=== PATIENT | male | born 1990 | race Caucasian/White ===

== ENCOUNTER 2021-01-31 20:49 | Observation (INO) | payer MEDICAID ==
[2021-01-31] MEDS ORDERED: Iopamidol 612 MG/ML 100 ML Bottle IVPUSH ONE (21:39)
[2021-01-31] MEDS ORDERED: Ondansetron 4 MG/2 ML SDV IV ONE (21:48)
[2021-01-31 22:12] LABS: CHLORIDE,CL 95 mmol/L (98-107); SODIUM,NA 131 mmol/L (136-145)
[2021-01-31] MEDS ORDERED: Sodium Chloride 0.9% 1,000 ML IV ONE (22:31)
[2021-01-31] MEDS ORDERED: Ciprofloxacin in D5W 400 MG in Premix Bag 1 BAG IV ONE ×2 (23:00)
[2021-01-31] MEDS ORDERED: metroNIDAZOLE/Normal Saline 500 MG in Premix Bag 1 BAG IV ONE (23:01)
--- NOTE | 2021-02-01 00:06 | EDM.PDOC ---
ED HPI GENERAL MEDICAL PROBLEM - General Chief Complaint: Abdominal Pain Stated Complaint: ABDOMINAL PAIN Time Seen by Provider: 01/31/21 21:15 Source of Information: Reports: Patient, RN, RN Notes Reviewed, Other (staff from senior living) History Limitations: Reports: Other - History of Present Illness INITIAL COMMENTS - FREE TEXT/NARRATIVE: Patient is a 30-year-old male who presents to ER from the senior living where he resides with complaint of recent history of constipation, abdominal pain, and vomiting today. Patient has been seeing his primary care provider, was recently given a bowel cleanse to assist with stubborn and chronic constipation. After drinking the entire bowel prep, patient has been vomiting x5 today. Staff states he did have a medium sized bowel movement this morning and since then has been watery stools. Denies any fever chills, chest pains or shortness of breath. Onset: Gradual - Related Data Allergies Allergy/AdvReac Type Severity Reaction Status Date / Time cefaclor [Cefaclor] Allergy Cannot Verified 09/19/13 19:38 Remember Home Meds: Home Meds LORazepam [Ativan] 0.5 mg PO ASDIRECTED PRN 09/20/13 [History] polyethylene glycoL 3350 [MiraLAX] 17 gm PO DAILY #1 box 09/23/13 [Rx] Amitriptyline [Elavil] 25 mg PO BEDTIME 02/01/21 [History] Amoxicillin 2,000 mg PO ASDIRECTED 02/01/21 [History] Calcium Carbonate [Tums] 1,000 mg PO DAILY 02/01/21 [History] Clindamycin Phosphate 1 applic TOP DAILY 02/01/21 [History] Multivit-Minerals/Folic Acid [One-A-Day Vitacraves Gummie] 400 mcg PO DAILY 02/01/21 [History] Non-Formulary Medication [NF Drug] 1 cap PO BID 02/01/21 [History] Non-Formulary Medication [NF Drug] 10 ml PO DAILY 02/01/21 [History] Sertraline [Zoloft] 25 mg PO DAILY 02/01/21 [History] lamoTRIgine 300 mg PO BID 02/01/21 [History] levETIRAcetam [Keppra] 1,500 mg PO BID 02/01/21 [History] Social & Family History - Tobacco Use Tobacco Use Status *Q: Never Tobacco User - Recreational Drug Use Recreational Drug Use: No ED ROS GENERAL - Review of Systems Review Of Systems: Comprehensive ROS is negative, except as noted in HPI. ED EXAM, GI/ABD - Physical Exam Exam: See Below Exam Limited By: Other (developmental disability) General Appearance: Alert, WD/WN, No Apparent Distress Eyes: Bilateral: Normal Appearance, EOMI Ears: Normal External Exam, Hearing Grossly Normal Nose: Normal Inspection Throat/Mouth: Normal Inspection, Normal Voice, No Airway Compromise Head: Atraumatic, Normocephalic Neck: Normal Inspection, Supple, Non-Tender, Full Range of Motion Respiratory/Chest: No Respiratory Distress, Lungs Clear, Normal Breath Sounds, No Accessory Muscle Use, Chest Non-Tender Cardiovascular: Normal Peripheral Pulses, Regular Rate, Rhythm, No Edema, No Gallop, No JVD, No Murmur, No Rub GI/Abdominal Exam: Distended, Rigid, Tender, Abnormal Bowel Sounds (hypoactive) (Male) Exam: Deferred Rectal (Males) Exam: Deferred Back Exam: Normal Inspection, Full Range of Motion, NT Extremities: Normal Inspection, Other (wheelchair bound) Neurological: Alert Psychiatric: Normal Mood, Flat Affect Skin Exam: Warm, Dry, Intact, Normal Color, No Rash Lymphatic: No Adenopathy Course - Vital Signs Last Recorded V/S: Last Vital Signs Temp 98.7 F 02/01/21 14:00 Pulse 92 02/01/21 14:00 Resp 18 02/01/21 14:00 BP 124/80 02/01/21 14:00 Pulse Ox 94 L 02/01/21 14:00 - Orders/Labs/Meds Labs: Laboratory Tests 01/31/21 01/31/21 01/31/21 Range/Units 21:38 21:38 21:38 WBC 17.6 H (4.0-10.0) x10^3/uL RBC 5.33 (4.5-6.0) x10^6/uL Hgb 16.4 (14.0-18.0) g/dL Hct 45.2 (40.0-52.0) % MCV 84.8 (78.0-93.0) fL MCH 30.8 (26.0-32.0) pg MCHC 36.3 H (32.0-36.0) g/dL RDW Coeff of Emilia 12.5 (10.0-15.0) % Plt Count 272 (130-400) x10^3/uL Immature Gran % (Auto) 0.50 H (0.00-0.43) % Neut % (Auto) 85.4 H (50.0-80.0) % Lymph % (Auto) 8.1 L (25.0-50.0) % [place] % (Auto) 5.6 (2.0-11.0) % Eos % (Auto) 0.1 (0.0-4.0) % Baso % (Auto) 0.3 (0.2-1.2) % Neut # (Auto) 15.0 H (1.8-7.7) x10^3/uL Lymph # (Auto) 1.4 (1.0-4.8) x10^3/uL [place] # (Auto) 1.0 H (0.0-0.8) x10^3/uL Eos # (Auto) 0.0 (0.0-0.5) x10^3/uL Baso # (Auto) 0.1 (0.0-0.2) x10^3/uL Immature Gran # (Auto) 0.09 H (0.00-0.07) x10^3/uL Sodium 131 L (136-145) mmol/L Potassium 4.0 (3.5-5.1) mmol/L Chloride 95 L (98-107) mmol/L Carbon Dioxide 24 (21-32) mmol/L Anion Gap 16.0 H (5-15) mmol/L BUN 6 L (7-18) mg/dL Creatinine 0.7 (0.70-1.30) mg/dL Est Cr Clr Drug Dosing 124.19 mL/min Estimated GFR (MDRD) > 60 Glucose 125 H (70-99) mg/dL Lactic Acid 3.0 H* (0.4-2.0) mmol/L Calcium 8.3 L (8.5-10.1) mg/dL Corrected Calcium 8.2 L (8.5-10.1) mg/dL Total Bilirubin 0.3 (0.2-1.0) mg/dL AST 20 (15-37) U/L ALT 42 (16-63) U/L Alkaline Phosphatase 117 H (46-116) U/L C-Reactive Protein 0.6 (<=0.9) mg/dL Total Protein 7.5 (6.4-8.2) g/dL Albumin 4.1 (3.4-5.0) g/dL Globulin 3.4 Albumin/Globulin Ratio 1.21 Urine Color (YELLOW) Urine Appearance (CLEAR) Urine pH (5.0-8.0) Ur Specific [place] Urine Protein (NEGATIVE) mg/dL Urine Glucose (UA) (NEGATIVE) mg/dL Urine Ketones (NEGATIVE) mg/dL Urine Occult Blood (NEGATIVE) Urine Nitrite (NEGATIVE) Urine Bilirubin (NEGATIVE) Urine Urobilinogen (0.2) EU/dL Ur Leukocyte Esterase (NEGATIVE) SARS CoV-2 RNA Rapid JOSÉ MIGUEL (NEGATIVE) 01/31/21 01/31/21 Range/Units 22:28 22:55 WBC (4.0-10.0) x10^3/uL RBC (4.5-6.0) x10^6/uL Hgb (14.0-18.0) g/dL Hct (40.0-52.0) % MCV (78.0-93.0) fL MCH (26.0-32.0) pg MCHC (32.0-36.0) g/dL RDW Coeff of Emilia (10.0-15.0) % Plt Count (130-400) x10^3/uL Immature Gran % (Auto) (0.00-0.43) % Neut % (Auto) (50.0-80.0) % Lymph % (Auto) (25.0-50.0) % [place] % (Auto) (2.0-11.0) % Eos % (Auto) (0.0-4.0) % Baso % (Auto) (0.2-1.2) % Neut # (Auto) (1.8-7.7) x10^3/uL Lymph # (Auto) (1.0-4.8) x10^3/uL [place] # (Auto) (0.0-0.8) x10^3/uL Eos # (Auto) (0.0-0.5) x10^3/uL Baso # (Auto) (0.0-0.2) x10^3/uL Immature Gran # (Auto) (0.00-0.07) x10^3/uL Sodium (136-145) mmol/L Potassium (3.5-5.1) mmol/L Chloride (98-107) mmol/L Carbon Dioxide (21-32) mmol/L Anion Gap (5-15) mmol/L BUN (7-18) mg/dL Creatinine (0.70-1.30) mg/dL Est Cr Clr Drug Dosing mL/min Estimated GFR (MDRD) Glucose (70-99) mg/dL Lactic Acid (0.4-2.0) mmol/L Calcium (8.5-10.1) mg/dL Corrected Calcium (8.5-10.1) mg/dL Total Bilirubin (0.2-1.0) mg/dL AST (15-37) U/L ALT (16-63) U/L Alkaline Phosphatase (46-116) U/L C-Reactive Protein (<=0.9) mg/dL Total Protein (6.4-8.2) g/dL Albumin (3.4-5.0) g/dL Globulin Albumin/Globulin Ratio Urine Color Yellow (YELLOW) Urine Appearance Clear (CLEAR) Urine pH 7.0 (5.0-8.0) Ur Specific [place] 1.020 Urine Protein Negative (NEGATIVE) mg/dL Urine Glucose (UA) Negative (NEGATIVE) mg/dL Urine Ketones Negative (NEGATIVE) mg/dL Urine Occult Blood Negative (NEGATIVE) Urine Nitrite Negative (NEGATIVE) Urine Bilirubin Negative (NEGATIVE) Urine Urobilinogen 0.2 (0.2) EU/dL Ur Leukocyte Esterase Negative (NEGATIVE) SARS CoV-2 RNA Rapid JOSÉ MIGUEL Negative (NEGATIVE) Meds: Medications Discontinued Medications Generic Name Dose Route Start Last Admin Trade Name Freq PRN Reason Stop Dose Admin Amitriptyline HCl 25 mg 02/01/21 20:00 Amitriptyline 25 Mg Tab PO BEDTIME ARABELLA Calcium Carbonate/Glycine 750 mg 02/02/21 08:00 Calcium Carbonate 750 Mg Tab.Chew PO DAILY ARABELLA Docusate Sodium 100 mg 02/01/21 20:00 Docusate Sodium 100 Mg Cap PO BID ARABELLA Sodium Chloride 1,000 mls @ 999 mls/hr 01/31/21 22:31 01/31/21 22:30 Normal Saline IV 01/31/21 23:31 999 mls/hr ONETIME ONE Administration Ciprofloxacin/Dextrose 400 mg/ 200 mls @ 200 mls/hr 01/31/21 23:00 02/01/21 02:56 Premix IV 01/31/21 23:59 Not Given STAT ONE Metronidazole 500 mg/ Premix 100 mls @ 100 mls/hr 01/31/21 23:01 01/31/21 23:01 IV 02/01/21 00:00 100 mls/hr ONETIME ONE Administration Ciprofloxacin/Dextrose Confirm 02/01/21 02:41 02/01/21 02:56 Cipro In D5w 400 Mg/200 Ml Administered 02/01/21 02:42 200 mls/hr Dose Administration 200 mls @ as directed .ROUTE .STK-MED ONE Iopamidol 100 ml 01/31/21 21:39 01/31/21 22:13 Iopamidol 612 Mg/Ml 100 Ml Bottle IVPUSH 01/31/21 21:40 75 ml ONETIME ONE Administration Lamotrigine 300 mg 02/01/21 08:00 Lamotrigine 100 Mg Tab PO BID ARABELLA Lamotrigine 300 mg 02/01/21 08:00 02/01/21 09:04 Lamotrigine 100 Mg Tab PO 300 mg BID ARABELLA Administration Levetiracetam 1,500 mg 02/01/21 08:00 02/01/21 09:04 Levetiracetam 500 Mg Tab PO 1,500 mg BID ARABELLA Administration Lorazepam packet 02/01/21 00:16 Take Home: Lorazepam 0.5 Mg Tab, 2 Tab Pack PO ASDIRECTED PRN Agitation Multivitamins/Minerals 1 tab 02/02/21 08:00 Multivitamins With Iron/Calcium/Folic Acid/Minerals Tab PO DAILY ARABELLA Non-Formulary Medication 20 ml 02/01/21 08:00 Levetiracetam [Levetiracetam] PO BID ARABELLA Non-Formulary Medication 300 mg 02/01/21 08:00 Lamotrigine [Lamotrigine] PO BID ARABELLA Non-Formulary Medication 1,500 mg 02/01/21 08:00 Levetiracetam [Keppra] PO BID ARABELLA Non-Formulary Medication 1 applic 02/02/21 08:00 Clindamycin Phosphate [Clindamycin Phosphate] TOP DAILY ARABELLA Non-Formulary Medication each 02/02/21 08:00 Non-Formulary Medication 1 Each PO DAILY ARABELLA Ondansetron HCl 4 mg 01/31/21 21:48 01/31/21 22:10 Ondansetron 4 Mg/2 Ml Sdv IV 01/31/21 21:49 4 mg ONETIME ONE Administration Polyethylene Glycol 17 gm 02/02/21 08:00 Polyethylene Glycol 3350 Powder 17 Gm Packet PO DAILY ARABELLA Sertraline HCl 25 mg 02/01/21 08:00 02/01/21 09:04 Sertraline 25 Mg Tab PO 25 mg DAILY ARABELLA Administration - Radiology Interpretation Free Text/Narrative:: CT Abdomen/Pelvis: Colitis noted Please see rad report - Re-Assessments/Exams Free Text/Narrative Re-Assessment/Exam: 02/01/21 20:34 Care turned over to Maile Brand NP at 0700 shift change. Departure - Departure Time of Disposition: 18:45 Disposition: Home, Self-Care 01 Condition: Fair Clinical Impression: Colitis - Discharge Information *PRESCRIPTION DRUG MONITORING PROGRAM REVIEWED*: No *COPY OF PRESCRIPTION DRUG MONITORING REPORT IN PATIENT JANE: No Sepsis Event Note (ED) - Evaluation Sepsis Screening Result: No Definite Risk
[2021-02-01] MEDS ORDERED: Take Home: LORazepam 0.5 MG Tab, 2 Tab Pack PO PRN (00:16)
[2021-02-01] MEDS ORDERED: Ciprofloxacin in D5W 200 ML ONE (02:41)
[2021-02-01] MEDS ORDERED: Non-Formulary Medication 1 Each (Levetiracetam [Keppra] 1,000 MG Tablet) PO SCH (08:00)
[2021-02-01] MEDS ORDERED: levETIRAcetam 500 MG Tab PO SCH (08:00)
[2021-02-01] MEDS ORDERED: Sertraline 25 MG Tab PO SCH (08:00)
[2021-02-01] MEDS ORDERED: LAMOTRIGINE 200 MG PO SCH (08:00)
[2021-02-01] MEDS ORDERED: LEVETIRACETAM 100 MG/ML PO SCH (08:00)
[2021-02-01] MEDS ORDERED: lamoTRIgine 100 MG Tab PO SCH ×2 (08:00)
--- NOTE | 2021-02-01 10:58 | CT ---
[id number] CT/CT Abdomen Pelvis W IV EXAM: CT Abdomen Pelvis W IV CLINICAL DATA: DISTENDED ABDOMEN, VOMITING, LOOSE STOOLS COMPARISON STUDY: None. FINDINGS: Ventriculostomy shunt tubing coursing through the subcutaneous fat of the right abdominal wall and entering the right mid abdomen. The catheter tip is positioned just deep to the left mid abdominal rectus musculature. Small volume free fluid adjacent to the dome of the urinary bladder. Elevation of the right hemidiaphragm. Liver, spleen, gallbladder, pancreas, adrenal glands, and kidneys are unremarkable. There is fluid seen throughout the colon most pronounced within the sigmoid colon. No significant inflammatory change. No lymphadenopathy, free fluid, or pneumoperitoneum. Scattered changes of spondylosis the spine. Advanced scoliotic curvature of the thoracolumbar spine with S shaped scoliosis. No fracture or osseous lesion. IMPRESSION: 1. Fluid seen throughout the colon most pronounced within the sigmoid colon and rectum. No significant surrounding inflammatory change. Findings could be seen with colitis. 2. Ventriculostomy shunt tubing coursing through the subcutaneous fat of the right abdominal wall and entering the right mid abdomen. Catheter tip is just deep to the left mid abdominal rectus musculature. Anand Medina DO 02/01/21 1057 Thank you for allowing us to participate in the care of your patient.
--- NOTE | 2021-02-01 17:24 | PCM.PN ---
- General Info Date of Service: 02/01/21 Admission Dx/Problem (Free Text): 1)Constipation 2)Possible Colitis Subjective Update: Fabricio is seen on rounds this AM. His mother is at bedside and is concerned about his shunt being plugged because he is having some of the neuro sx that he has when the shunt has been plugged in the past. Mother reports that his right eye is gazing inward and his eyes are more "bulged out" than normal. He has had his shunt block several times and had to have revisions done. He then had 5-6 stools today and then his mom reported that his subtle neuro changes have improved. [facility] noted that shunt tip was pushed up against the abdominal wall on CT. Patient then has had a fairly uneventful day and several more bowel movements. - Review of Systems General: Reports: No Symptoms HEENT: Reports: No Symptoms Pulmonary: Reports: No Symptoms Cardiovascular: Reports: No Symptoms Gastrointestinal: Reports: Other (Multiple bowel movements) Genitourinary: Reports: No Symptoms Musculoskeletal: Reports: No Symptoms Neurological: Reports: Other (See Subjective for further description) - Patient Data Vitals - Most Recent: Last Vital Signs Temp 37.1 C 02/01/21 14:00 Pulse 92 02/01/21 14:00 Resp 18 02/01/21 14:00 BP 124/80 02/01/21 14:00 Pulse Ox 94 L 02/01/21 14:00 Weight - Most Recent: 74.843 kg I&O - Last 24 Hours: Intake & Output 02/01/21 02/01/21 02/01/21 06:59 14:59 22:59 Intake Total 10 Balance 10 Lab Results Last 24 Hours: Laboratory Results - last 24 hr 01/31/21 01/31/21 01/31/21 Range/Units 21:38 21:38 21:38 WBC 17.6 H (4.0-10.0) x10^3/uL RBC 5.33 (4.5-6.0) x10^6/uL Hgb 16.4 (14.0-18.0) g/dL Hct 45.2 (40.0-52.0) % MCV 84.8 (78.0-93.0) fL MCH 30.8 (26.0-32.0) pg MCHC 36.3 H (32.0-36.0) g/dL RDW Coeff of Emilia 12.5 (10.0-15.0) % Plt Count 272 (130-400) x10^3/uL Immature Gran % (Auto) 0.50 H (0.00-0.43) % Neut % (Auto) 85.4 H (50.0-80.0) % Lymph % (Auto) 8.1 L (25.0-50.0) % [place] % (Auto) 5.6 (2.0-11.0) % Eos % (Auto) 0.1 (0.0-4.0) % Baso % (Auto) 0.3 (0.2-1.2) % Neut # (Auto) 15.0 H (1.8-7.7) x10^3/uL Lymph # (Auto) 1.4 (1.0-4.8) x10^3/uL [place] # (Auto) 1.0 H (0.0-0.8) x10^3/uL Eos # (Auto) 0.0 (0.0-0.5) x10^3/uL Baso # (Auto) 0.1 (0.0-0.2) x10^3/uL Immature Gran # (Auto) 0.09 H (0.00-0.07) x10^3/uL Sodium 131 L (136-145) mmol/L Potassium 4.0 (3.5-5.1) mmol/L Chloride 95 L (98-107) mmol/L Carbon Dioxide 24 (21-32) mmol/L Anion Gap 16.0 H (5-15) mmol/L BUN 6 L (7-18) mg/dL Creatinine 0.7 (0.70-1.30) mg/dL Est Cr Clr Drug Dosing 124.19 mL/min Estimated GFR (MDRD) > 60 Glucose 125 H (70-99) mg/dL Lactic Acid 3.0 H* (0.4-2.0) mmol/L Calcium 8.3 L (8.5-10.1) mg/dL Corrected Calcium 8.2 L (8.5-10.1) mg/dL Total Bilirubin 0.3 (0.2-1.0) mg/dL AST 20 (15-37) U/L ALT 42 (16-63) U/L Alkaline Phosphatase 117 H (46-116) U/L C-Reactive Protein 0.6 (<=0.9) mg/dL Total Protein 7.5 (6.4-8.2) g/dL Albumin 4.1 (3.4-5.0) g/dL Globulin 3.4 Albumin/Globulin Ratio 1.21 Urine Color (YELLOW) Urine Appearance (CLEAR) Urine pH (5.0-8.0) Ur Specific [place] Urine Protein (NEGATIVE) mg/dL Urine Glucose (UA) (NEGATIVE) mg/dL Urine Ketones (NEGATIVE) mg/dL Urine Occult Blood (NEGATIVE) Urine Nitrite (NEGATIVE) Urine Bilirubin (NEGATIVE) Urine Urobilinogen (0.2) EU/dL Ur Leukocyte Esterase (NEGATIVE) SARS CoV-2 RNA Rapid JOSÉ MIGUEL (NEGATIVE) 01/31/21 01/31/21 02/01/21 Range/Units 22:28 22:55 01:58 WBC (4.0-10.0) x10^3/uL RBC (4.5-6.0) x10^6/uL Hgb (14.0-18.0) g/dL Hct (40.0-52.0) % MCV (78.0-93.0) fL MCH (26.0-32.0) pg MCHC (32.0-36.0) g/dL RDW Coeff of Emilia (10.0-15.0) % Plt Count (130-400) x10^3/uL Immature Gran % (Auto) (0.00-0.43) % Neut % (Auto) (50.0-80.0) % Lymph % (Auto) (25.0-50.0) % [place] % (Auto) (2.0-11.0) % Eos % (Auto) (0.0-4.0) % Baso % (Auto) (0.2-1.2) % Neut # (Auto) (1.8-7.7) x10^3/uL Lymph # (Auto) (1.0-4.8) x10^3/uL [place] # (Auto) (0.0-0.8) x10^3/uL Eos # (Auto) (0.0-0.5) x10^3/uL Baso # (Auto) (0.0-0.2) x10^3/uL Immature Gran # (Auto) (0.00-0.07) x10^3/uL Sodium (136-145) mmol/L Potassium (3.5-5.1) mmol/L Chloride (98-107) mmol/L Carbon Dioxide (21-32) mmol/L Anion Gap (5-15) mmol/L BUN (7-18) mg/dL Creatinine (0.70-1.30) mg/dL Est Cr Clr Drug Dosing mL/min Estimated GFR (MDRD) Glucose (70-99) mg/dL Lactic Acid 2.0 (0.4-2.0) mmol/L Calcium (8.5-10.1) mg/dL Corrected Calcium (8.5-10.1) mg/dL Total Bilirubin (0.2-1.0) mg/dL AST (15-37) U/L ALT (16-63) U/L Alkaline Phosphatase (46-116) U/L C-Reactive Protein (<=0.9) mg/dL Total Protein (6.4-8.2) g/dL Albumin (3.4-5.0) g/dL Globulin Albumin/Globulin Ratio Urine Color Yellow (YELLOW) Urine Appearance Clear (CLEAR) Urine pH 7.0 (5.0-8.0) Ur Specific [place] 1.020 Urine Protein Negative (NEGATIVE) mg/dL Urine Glucose (UA) Negative (NEGATIVE) mg/dL Urine Ketones Negative (NEGATIVE) mg/dL Urine Occult Blood Negative (NEGATIVE) Urine Nitrite Negative (NEGATIVE) Urine Bilirubin Negative (NEGATIVE) Urine Urobilinogen 0.2 (0.2) EU/dL Ur Leukocyte Esterase Negative (NEGATIVE) SARS CoV-2 RNA Rapid JOSÉ MIGUEL Negative (NEGATIVE) Bradford Results Last 24 Hours: Microbiology 01/31/21 22:23 Anaerobic Blood Culture - Final Blood - Venous 01/31/21 22:28 Anaerobic Blood Culture - Final Blood - Venous - Lab Draw Med Orders - Current: Current Medications Lamotrigine (Lamotrigine 100 Mg Tab) 300 mg PO BID [facility] Last Admin: 02/01/21 09:04 Dose: 300 mg Documented by: Levetiracetam (Levetiracetam 500 Mg Tab) 1,500 mg PO BID [facility] Last Admin: 02/01/21 09:04 Dose: 1,500 mg Documented by: Sertraline HCl (Sertraline 25 Mg Tab) 25 mg PO DAILY ARABELLA Last Admin: 02/01/21 09:04 Dose: 25 mg Documented by: Discontinued Medications Sodium Chloride (Normal Saline) 1,000 mls @ 999 mls/hr IV ONETIME ONE Stop: 01/31/21 23:31 Last Admin: 01/31/21 22:30 Dose: 999 mls/hr Documented by: Ciprofloxacin/Dextrose 400 mg/ (Premix) 200 mls @ 200 mls/hr IV STAT ONE Stop: 01/31/21 23:59 Last Admin: 02/01/21 02:56 Dose: Not Given Documented by: Metronidazole 500 mg/ Premix 100 mls @ 100 mls/hr IV ONETIME ONE Stop: 02/01/21 00:00 Last Admin: 01/31/21 23:01 Dose: 100 mls/hr Documented by: Ciprofloxacin/Dextrose (Cipro In D5w 400 Mg/200 Ml) Confirm Administered Dose 200 mls @ as directed .ROUTE .STK-MED ONE Stop: 02/01/21 02:42 Last Admin: 02/01/21 02:56 Dose: 200 mls/hr Documented by: Iopamidol (Iopamidol 612 Mg/Ml 100 Ml Bottle) 100 ml IVPUSH ONETIME ONE Stop: 01/31/21 21:40 Last Admin: 01/31/21 22:13 Dose: 75 ml Documented by: Lamotrigine (Lamotrigine 100 Mg Tab) 300 mg PO BID ARABELLA Lorazepam (Take Home: Lorazepam 0.5 Mg Tab, 2 Tab Pack) packet PO ASDIRECTED PRN PRN Reason: Agitation Non-Formulary Medication (Levetiracetam [Levetiracetam]) 20 ml PO BID ARABELLA Non-Formulary Medication (Lamotrigine [Lamotrigine]) 300 mg PO BID ARABELLA Non-Formulary Medication (Levetiracetam [Keppra]) 1,500 mg PO BID ARABELLA Ondansetron HCl (Ondansetron 4 Mg/2 Ml Sdv) 4 mg IV ONETIME ONE Stop: 01/31/21 21:49 Last Admin: 01/31/21 22:10 Dose: 4 mg Documented by: - Exam General: Alert HEENT: Pupils Equal, Mucous Membr. Moist/[place], Other (Note right eye gazing inward this AM, but improved ove rthe course of the day.) Neck: Supple Lungs: Clear to Auscultation Cardiovascular: Regular Rate, Regular Rhythm GI/Abdominal Exam: Normal Bowel Sounds, Other (Right side of abdomen palpated more firm.) (Male) Exam: Normal Inspection Back Exam: Normal Inspection Extremities: Normal Inspection, Normal Range of Motion, Normal Capillary Refill Skin: Warm, Dry, Intact Neurological: No New Focal Deficit Psy/Mental Status: Alert - Patient Data Lab Results Last 24 hrs: Laboratory Results - last 24 hr 01/31/21 01/31/21 01/31/21 Range/Units 21:38 21:38 21:38 WBC 17.6 H (4.0-10.0) x10^3/uL RBC 5.33 (4.5-6.0) x10^6/uL Hgb 16.4 (14.0-18.0) g/dL Hct 45.2 (40.0-52.0) % MCV 84.8 (78.0-93.0) fL MCH 30.8 (26.0-32.0) pg MCHC 36.3 H (32.0-36.0) g/dL RDW Coeff of Emilia 12.5 (10.0-15.0) % Plt Count 272 (130-400) x10^3/uL Immature Gran % (Auto) 0.50 H (0.00-0.43) % Neut % (Auto) 85.4 H (50.0-80.0) % Lymph % (Auto) 8.1 L (25.0-50.0) % [place] % (Auto) 5.6 (2.0-11.0) % Eos % (Auto) 0.1 (0.0-4.0) % Baso % (Auto) 0.3 (0.2-1.2) % Neut # (Auto) 15.0 H (1.8-7.7) x10^3/uL Lymph # (Auto) 1.4 (1.0-4.8) x10^3/uL [place] # (Auto) 1.0 H (0.0-0.8) x10^3/uL Eos # (Auto) 0.0 (0.0-0.5) x10^3/uL Baso # (Auto) 0.1 (0.0-0.2) x10^3/uL Immature Gran # (Auto) 0.09 H (0.00-0.07) x10^3/uL Sodium 131 L (136-145) mmol/L Potassium 4.0 (3.5-5.1) mmol/L Chloride 95 L (98-107) mmol/L Carbon Dioxide 24 (21-32) mmol/L Anion Gap 16.0 H (5-15) mmol/L BUN 6 L (7-18) mg/dL Creatinine 0.7 (0.70-1.30) mg/dL Est Cr Clr Drug Dosing 124.19 mL/min Estimated GFR (MDRD) > 60 Glucose 125 H (70-99) mg/dL Lactic Acid 3.0 H* (0.4-2.0) mmol/L Calcium 8.3 L (8.5-10.1) mg/dL Corrected Calcium 8.2 L (8.5-10.1) mg/dL Total Bilirubin 0.3 (0.2-1.0) mg/dL AST 20 (15-37) U/L ALT 42 (16-63) U/L Alkaline Phosphatase 117 H (46-116) U/L C-Reactive Protein 0.6 (<=0.9) mg/dL Total Protein 7.5 (6.4-8.2) g/dL Albumin 4.1 (3.4-5.0) g/dL Globulin 3.4 Albumin/Globulin Ratio 1.21 Urine Color (YELLOW) Urine Appearance (CLEAR) Urine pH (5.0-8.0) Ur Specific [place] Urine Protein (NEGATIVE) mg/dL Urine Glucose (UA) (NEGATIVE) mg/dL Urine Ketones (NEGATIVE) mg/dL Urine Occult Blood (NEGATIVE) Urine Nitrite (NEGATIVE) Urine Bilirubin (NEGATIVE) Urine Urobilinogen (0.2) EU/dL Ur Leukocyte Esterase (NEGATIVE) SARS CoV-2 RNA Rapid JOSÉ MIGUEL (NEGATIVE) 01/31/21 01/31/21 02/01/21 Range/Units 22:28 22:55 01:58 WBC (4.0-10.0) x10^3/uL RBC (4.5-6.0) x10^6/uL Hgb (14.0-18.0) g/dL Hct (40.0-52.0) % MCV (78.0-93.0) fL MCH (26.0-32.0) pg MCHC (32.0-36.0) g/dL RDW Coeff of Emilia (10.0-15.0) % Plt Count (130-400) x10^3/uL Immature Gran % (Auto) (0.00-0.43) % Neut % (Auto) (50.0-80.0) % Lymph % (Auto) (25.0-50.0) % [place] % (Auto) (2.0-11.0) % Eos % (Auto) (0.0-4.0) % Baso % (Auto) (0.2-1.2) % Neut # (Auto) (1.8-7.7) x10^3/uL Lymph # (Auto) (1.0-4.8) x10^3/uL [place] # (Auto) (0.0-0.8) x10^3/uL Eos # (Auto) (0.0-0.5) x10^3/uL Baso # (Auto) (0.0-0.2) x10^3/uL Immature Gran # (Auto) (0.00-0.07) x10^3/uL Sodium (136-145) mmol/L Potassium (3.5-5.1) mmol/L Chloride (98-107) mmol/L Carbon Dioxide (21-32) mmol/L Anion Gap (5-15) mmol/L BUN (7-18) mg/dL Creatinine (0.70-1.30) mg/dL Est Cr Clr Drug Dosing mL/min Estimated GFR (MDRD) Glucose (70-99) mg/dL Lactic Acid 2.0 (0.4-2.0) mmol/L Calcium (8.5-10.1) mg/dL Corrected Calcium (8.5-10.1) mg/dL Total Bilirubin (0.2-1.0) mg/dL AST (15-37) U/L ALT (16-63) U/L Alkaline Phosphatase (46-116) U/L C-Reactive Protein (<=0.9) mg/dL Total Protein (6.4-8.2) g/dL Albumin (3.4-5.0) g/dL Globulin Albumin/Globulin Ratio Urine Color Yellow (YELLOW) Urine Appearance Clear (CLEAR) Urine pH 7.0 (5.0-8.0) Ur Specific [place] 1.020 Urine Protein Negative (NEGATIVE) mg/dL Urine Glucose (UA) Negative (NEGATIVE) mg/dL Urine Ketones Negative (NEGATIVE) mg/dL Urine Occult Blood Negative (NEGATIVE) Urine Nitrite Negative (NEGATIVE) Urine Bilirubin Negative (NEGATIVE) Urine Urobilinogen 0.2 (0.2) EU/dL Ur Leukocyte Esterase Negative (NEGATIVE) SARS CoV-2 RNA Rapid JOSÉ MIGUEL Negative (NEGATIVE) Result Diagrams: 01/31/21 21:38 01/31/21 21:38 Bradofrd Results Last 24 hrs: Microbiology 01/31/21 22:23 Anaerobic Blood Culture - Final Blood - Venous 01/31/21 22:28 Anaerobic Blood Culture - Final Blood - Venous - Lab Draw Sepsis Event Note - Evaluation Sepsis Screening Result: Sepsis Risk - Focused Exam Vital Signs: Vital Signs Temp Pulse Resp BP Pulse Ox 02/01/21 14:00 37.1 C 92 18 124/80 94 L 02/01/21 13:33 36.7 C 54 L 18 134/82 94 L 02/01/21 05:30 37.2 C 20 L 18 128/74 92 L - Problem List & Annotations (1) Constipation - functional SNOMED Code(s): 271519106 Code(s): K59.09 - OTHER CONSTIPATION Status: Acute Current Visit: No Annotation/Comment:: Has had multiple bowel movements over the course of the day. [facility] and advised high fiber and increased oral fluids. (2) 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 SNOMED Code(s): 675605403 Code(s): Z98.2 - PRESENCE OF CEREBROSPINAL FLUID DRAINAGE DEVICE Status: Acute Current Visit: Yes Annotation/Comment:: Sx were concerning for a blocked shunt, but has he had more BMs today, the neuro sx resolved. Most likely the shun tip was blocked due to the severe constipation. - Problem List Review Problem List Initiated/Reviewed/Updated: Yes - Plan Plan:: -Discharge back to [facility] -High Fiber Diet -Push fluids. -Follow up with PCP in 1 week.
[2021-02-01] MEDS ORDERED: Docusate Sodium 100 MG Cap PO SCH (20:00)
[2021-02-01] MEDS ORDERED: Amitriptyline 25 MG Tab PO SCH (20:00)
[2021-02-02] MEDS ORDERED: Multivitamins with Iron/Calcium/Folic Acid/Minerals Tab PO SCH (08:00)
[2021-02-02] MEDS ORDERED: Polyethylene Glycol 3350 Powder 17 GM Packet PO SCH (08:00)
[2021-02-02] MEDS ORDERED: Non-Formulary Medication 1 Each PO SCH (08:00)
[2021-02-02] MEDS ORDERED: CLINDAMYCIN PHOSPHATE TOP SCH (08:00)
[2021-02-02] MEDS ORDERED: Calcium Carbonate 750 MG Tab.Chew PO SCH (08:00)
== END 2021-02-01 18:45 ==
LOC: VM.ED 20:49 → VM.MS 02-01 00:12
PROVIDERS: ADMIT Nurse Practitioner Family; ATTEND Nurse Practitioner Family
DX: K59.04 Chronic idiopathic constipation (principal); R11.0 Nausea; Z88.8 Allergy status to other drugs, medicaments and biological substances; Z79.899 Other long term (current) drug therapy; Z98.2 Presence of cerebrospinal fluid drainage device; Z20.822 Contact with and (suspected) exposure to COVID-19
CPT/HCPCS: 36415; 74177; 80053; 81003; 83605; 85025; 86140; 87040; 96365; 96375; 99217; 99220; 99285-25; A9270-GY; G0378; J0744; J2405; J3490; J7030; Q9967; U0002

== ENCOUNTER 2021-04-14 05:30 | Inpatient (IN) | payer MEDICAID ==
--- NOTE | 2021-04-14 06:30 | EDM.PDOC ---
ED HPI GENERAL MEDICAL PROBLEM - General Chief Complaint: General Stated Complaint: Seizure Time Seen by Provider: 04/14/21 05:33 Source of Information: Reports: EMS - History of Present Illness INITIAL COMMENTS - FREE TEXT/NARRATIVE: Came in via EMS from custodial where he had a seizure that lasted 4 minutes. Arrived to ER in no distress. Has intellectual disability, cerebral palsy, senior svp shunt, hx seizures. Care worker reports pat concerns about constipation, but reports adequate BMs recently. Reports vomited yesterday. Onset: Sudden Onset Date: 04/13/21 Onset Time: 05:00 Duration: Resolved Prior to Arrival - Related Data Allergies Allergy/AdvReac Type Severity Reaction Status Date / Time cefaclor [Cefaclor] Allergy Cannot Verified 04/14/21 08:18 Remember Home Meds: Home Meds LORazepam [Ativan] 0.5 mg PO ASDIRECTED PRN 09/20/13 [History] Amoxicillin 2,000 mg PO ASDIRECTED 02/01/21 [History] Calcium Carbonate [Tums] 1,000 mg PO DAILY 02/01/21 [History] Clindamycin Phosphate 1 applic TOP DAILY 02/01/21 [History] Multivit-Minerals/Folic Acid [One-A-Day Vitacraves Gummie] 400 mcg PO DAILY 02/01/21 [History] Non-Formulary Medication [NF Drug] 1 cap PO BID 02/01/21 [History] Non-Formulary Medication [NF Drug] 10 ml PO DAILY 02/01/21 [History] Sertraline [Zoloft] 25 mg PO DAILY 02/01/21 [History] lamoTRIgine 300 mg PO BID 02/01/21 [History] levETIRAcetam [Keppra] 1,500 mg PO BID 02/01/21 [History] polyethylene glycoL 3350 [MiraLAX] 17 gm PO BID 04/14/21 [History] Past Medical History HEENT History: Reports: Other (See Below) (legally blind) Neurological History: Reports: Cerebral Palsy, Seizure Social & Family History - Family History Family Medical History: Unobtainable - Caffeine Use Caffeine Use: Reports: None ED ROS GENERAL - Review of Systems Review Of Systems: Comprehensive ROS is negative, except as noted in HPI. ED EXAM, GENERAL - Physical Exam Exam: See Below Exam Limited By: Other (intellectual disability) General Appearance: No Apparent Distress, Other (awake) Eye Exam: Bilateral Eye: Other (legally blind) Ears: Normal External Exam Nose: Normal Inspection, Normal Mucosa, No Blood Throat/Mouth: Normal Lips, No Airway Compromise Head: Atraumatic, Normocephalic Neck: Non-Tender Respiratory/Chest: No Respiratory Distress, Lungs Clear, No Accessory Muscle Use, Chest Non-Tender, Decreased Breath Sounds Cardiovascular: Regular Rate, Rhythm GI/Abdominal: Normal Bowel Sounds, Soft, Non-Tender Extremities: No Pedal Edema, Normal Capillary Refill Neurological: Sensory/Motor Deficit, Other (at baseline) Skin Exam: Warm, Dry, Intact, Normal Color, No Rash Lymphatic: No Adenopathy Course - Vital Signs Last Recorded V/S: Last Vital Signs Temp 101.7 F H 04/14/21 09:28 Pulse 75 04/14/21 09:52 Resp 18 04/14/21 09:52 BP 116/71 04/14/21 09:52 Pulse Ox 92 L 04/14/21 09:52 - Orders/Labs/Meds Orders: Active Orders 24 hr Category Date Time Status CULTURE BLOOD [BC] Stat Lab 04/14/21 08:18 Received CULTURE BLOOD [BC] Stat Lab 04/14/21 08:22 Received Sodium Chloride 0.9% [Normal Saline] 1,000 ml Med 04/14/21 08:00 Active IV ASDIRECTED Blood Culture x2 Reflex Set [OM.PC] Stat Oth 04/14/21 08:03 Ordered Medication Orders Enoxaparin Sodium (Enoxaparin 40 Mg/0.4 Ml Syringe) 40 mg SUBCUT DAILY ARABELLA Sodium Chloride (Normal Saline) 1,000 mls @ 999 mls/hr IV ASDIRECTED ARABELLA Last Admin: 04/14/21 07:55 Dose: 999 mls/hr Documented by: LAURA Piperacillin Sod/Tazobactam (Sod 4.5 gm/ Sodium Chloride) 100 mls @ 200 mls/hr IV Q6H ARABELLA Lamotrigine (Lamotrigine 100 Mg Tab) 300 mg PO BID ARABELLA Levetiracetam (Levetiracetam 500 Mg Tab) 1,500 mg PO BID ARABELLA Lorazepam (Lorazepam 0.5 Mg Tab) 0.5 mg PO ASDIRECTED PRN PRN Reason: Agitation Clindamycin Phosphate Gel (Own Supply) 1 applic TOP DAILY [facility] Ondansetron HCl (Ondansetron 4 Mg Tab.Dis) 4 mg PO Q4H PRN PRN Reason: nausea, able to take PO Ondansetron HCl (Ondansetron 4 Mg/2 Ml Sdv) 4 mg IV Q4H PRN PRN Reason: Nausea/Vomiting Polyethylene Glycol (Polyethylene Glycol 3350 Powder 17 Gm Packet) 17 gm PO BID [facility] Sertraline HCl (Sertraline 25 Mg Tab) 25 mg PO DAILY [facility] Labs: Laboratory Tests 04/14/21 04/14/21 04/14/21 Range/Units 07:02 07:02 07:02 WBC 18.9 H (4.0-10.0) x10^3/uL RBC 5.40 (4.5-6.0) x10^6/uL Hgb 16.8 (14.0-18.0) g/dL Hct 46.3 (40.0-52.0) % MCV 85.7 (78.0-93.0) fL MCH 31.1 (26.0-32.0) pg MCHC 36.3 H (32.0-36.0) g/dL RDW Coeff of Emilia 12.4 (10.0-15.0) % Plt Count 278 (130-400) x10^3/uL Immature Gran % (Auto) 0.20 (0.00-0.43) % Neut % (Auto) 84.0 H (50.0-80.0) % Lymph % (Auto) 7.5 L (25.0-50.0) % Henry % (Auto) 8.0 (2.0-11.0) % Eos % (Auto) 0.1 (0.0-4.0) % Baso % (Auto) 0.2 (0.2-1.2) % Neut # (Auto) 15.9 H (1.8-7.7) x10^3/uL Lymph # (Auto) 1.4 (1.0-4.8) x10^3/uL Henry # (Auto) 1.5 H (0.0-0.8) x10^3/uL Eos # (Auto) 0.0 (0.0-0.5) x10^3/uL Baso # (Auto) 0.0 (0.0-0.2) x10^3/uL Immature Gran # (Auto) 0.04 (0.00-0.07) x10^3/uL Sodium 134 L (136-145) mmol/L Potassium 3.6 (3.5-5.1) mmol/L Chloride 98 (98-107) mmol/L Carbon Dioxide 24 (21-32) mmol/L Anion Gap 15.6 H (5-15) mmol/L BUN 12 (7-18) mg/dL Creatinine 0.8 (0.70-1.30) mg/dL Est Cr Clr Drug Dosing TNP Estimated GFR (MDRD) > 60 Glucose 103 H (70-99) mg/dL Lactic Acid 1.2 (0.4-2.0) mmol/L Calcium 9.6 (8.5-10.1) mg/dL Corrected Calcium 9.6 (8.5-10.1) mg/dL Total Bilirubin 0.5 (0.2-1.0) mg/dL AST 16 (15-37) U/L ALT 35 (16-63) U/L Alkaline Phosphatase 123 H (46-116) U/L Total Protein 7.7 (6.4-8.2) g/dL Albumin 4.0 (3.4-5.0) g/dL Globulin 3.7 Albumin/Globulin Ratio 1.08 Influenza Type A RNA (NEGATIVE) RSV RNA (INAAT) (NEGATIVE) Influenza Type B RNA (NEGATIVE) SARS-CoV-2 RNA (JOSÉ MIGUEL) (NEGATIVE) 04/14/21 Range/Units 08:00 WBC (4.0-10.0) x10^3/uL RBC (4.5-6.0) x10^6/uL Hgb (14.0-18.0) g/dL Hct (40.0-52.0) % MCV (78.0-93.0) fL MCH (26.0-32.0) pg MCHC (32.0-36.0) g/dL RDW Coeff of Emilia (10.0-15.0) % Plt Count (130-400) x10^3/uL Immature Gran % (Auto) (0.00-0.43) % Neut % (Auto) (50.0-80.0) % Lymph % (Auto) (25.0-50.0) % Henry % (Auto) (2.0-11.0) % Eos % (Auto) (0.0-4.0) % Baso % (Auto) (0.2-1.2) % Neut # (Auto) (1.8-7.7) x10^3/uL Lymph # (Auto) (1.0-4.8) x10^3/uL Henry # (Auto) (0.0-0.8) x10^3/uL Eos # (Auto) (0.0-0.5) x10^3/uL Baso # (Auto) (0.0-0.2) x10^3/uL Immature Gran # (Auto) (0.00-0.07) x10^3/uL Sodium (136-145) mmol/L Potassium (3.5-5.1) mmol/L Chloride (98-107) mmol/L Carbon Dioxide (21-32) mmol/L Anion Gap (5-15) mmol/L BUN (7-18) mg/dL Creatinine (0.70-1.30) mg/dL Est Cr Clr Drug Dosing Estimated GFR (MDRD) Glucose (70-99) mg/dL Lactic Acid (0.4-2.0) mmol/L Calcium (8.5-10.1) mg/dL Corrected Calcium (8.5-10.1) mg/dL Total Bilirubin (0.2-1.0) mg/dL AST (15-37) U/L ALT (16-63) U/L Alkaline Phosphatase (46-116) U/L Total Protein (6.4-8.2) g/dL Albumin (3.4-5.0) g/dL Globulin Albumin/Globulin Ratio Influenza Type A RNA Negative (NEGATIVE) RSV RNA (INAAT) Negative (NEGATIVE) Influenza Type B RNA Negative (NEGATIVE) SARS-CoV-2 RNA (JOSÉ MIGUEL) Negative (NEGATIVE) Meds: Medications Generic Name Dose Route Start Last Admin Trade Name Freq PRN Reason Stop Dose Admin Enoxaparin Sodium 40 mg 04/15/21 08:00 Enoxaparin 40 Mg/0.4 Ml Syringe SUBCUT DAILY ARABELLA Sodium Chloride 1,000 mls @ 999 mls/hr 04/14/21 08:00 04/14/21 07:55 Normal Saline IV 999 mls/hr ASDIRECTED ARABELLA Administration Piperacillin Sod/Tazobactam 100 mls @ 200 mls/hr 04/14/21 11:30 Sod 4.5 gm/ Sodium Chloride IV Q6H ARABELLA Lamotrigine 300 mg 04/14/21 20:00 Lamotrigine 100 Mg Tab PO BID ARABELLA Levetiracetam 1,500 mg 04/14/21 20:00 Levetiracetam 500 Mg Tab PO BID ARABELLA Lorazepam 0.5 mg 04/14/21 10:54 Lorazepam 0.5 Mg Tab PO ASDIRECTED PRN Agitation Clindamycin 1 applic 04/15/21 08:00 Phosphate Gel (Own [employer] Supply) DAILY [facility] Ondansetron HCl 4 mg 04/14/21 10:18 Ondansetron 4 Mg Tab.Dis PO Q4H PRN nausea, able to take PO Ondansetron HCl 4 mg 04/14/21 10:18 Ondansetron 4 Mg/2 Ml Sdv IV Q4H PRN Nausea/Vomiting Polyethylene Glycol 17 gm 04/14/21 11:00 Polyethylene Glycol 3350 Powder 17 Gm Packet PO BID [facility] Sertraline HCl 25 mg 04/15/21 08:00 Sertraline 25 Mg Tab PO DAILY ARABELLA Discontinued Medications Generic Name Dose Route Start Last Admin Trade Name Freq PRN Reason Stop Dose Admin Acetaminophen 650 mg 04/14/21 08:53 04/14/21 08:58 Acetaminophen 325 Mg Tab PO 04/14/21 08:54 650 mg NOW ONE Administration Sodium Biphosphate/Sodium Phosphate 133 ml 04/14/21 11:00 Sodium Phosphate,Monobasic/Sodium Phosphate,Dibasic Enema 133 Ml Bottle RECTAL 04/14/21 11:01 ONETIME ONE - Re-Assessments/Exams Free Text/Narrative Re-Assessment/Exam: 04/14/21 08:18 Pt's temp 101.4 and thus blood cx, ua, cxr, kub ordered. Dr. Cotter notified, states wants on-call Dr. Rosales to admit. Departure - Departure Time of Disposition: 10:30 Disposition: Admitted As Inpatient 66 Condition: Good Clinical Impression: Fever, Constipation - functional Increased white blood cell count Qualifiers: Leukocytosis type: unspecified Qualified Code(s): D72.829 - Elevated white blood cell count, unspecified - Discharge Information Sepsis Event Note (ED) - Focused Exam Vital Signs: Vital Signs Temp Temp Pulse Resp BP BP Pulse Ox 04/14/21 07:45 101.4 F H 73 18 138/76 93 L 04/14/21 07:00 81 16 120/52 L 97 04/14/21 05:30 98.2 F 108 H 16 112/55 L 90 L Pulse Ox 04/14/21 07:45 04/14/21 07:00 04/14/21 05:30 89 L - Problem List & Annotations (1) Seizure disorder SNOMED Code(s): 623691199 Code(s): G40.909 - EPILEPSY, UNSP, NOT INTRACTABLE, WITHOUT STATUS EPILEPTICUS Status: Acute Current Visit: No (2) Fever SNOMED Code(s): 114683595 Code(s): R50.9 - FEVER, UNSPECIFIED Status: Acute Current Visit: Yes (3) Fever SNOMED Code(s): 561615465 Code(s): R50.9 - FEVER, UNSPECIFIED Status: Acute Current Visit: Yes (4) Increased white blood cell count SNOMED Code(s): 255167096, 929917681 Code(s): D72.829 - ELEVATED WHITE BLOOD CELL COUNT, UNSPECIFIED Status: Acute Current Visit: Yes (5) Increased white blood cell count SNOMED Code(s): 565842391, 082025030 Code(s): D72.829 - ELEVATED WHITE BLOOD CELL COUNT, UNSPECIFIED Status: Acute Current Visit: Yes Qualifiers: Leukocytosis type: unspecified Qualified Code(s): D72.829 - Elevated white blood cell count, unspecified (6) Constipation - functional SNOMED Code(s): 077254231 Code(s): K59.09 - OTHER CONSTIPATION Status: Acute Current Visit: Yes Annotation/Comment:: Has had multiple bowel movements over the course of the day. Will send back to the [facility] and advised high fiber and increased oral fluids. - Problem List Review Problem List Initiated/Reviewed/Updated: Yes - My Orders Last 24 Hours: My Active Orders 04/14/21 08:00 Sodium Chloride 0.9% [Normal Saline] 1,000 ml IV ASDIRECTED 04/14/21 08:03 Blood Culture x2 Reflex Set [OM.PC] Stat 04/14/21 08:18 CULTURE BLOOD [BC] Stat 04/14/21 08:22 CULTURE BLOOD [BC] Stat - Assessment/Plan Last 24 Hours: My Active Orders 04/14/21 08:00 Sodium Chloride 0.9% [Normal Saline] 1,000 ml IV ASDIRECTED 04/14/21 08:03 Blood Culture x2 Reflex Set [OM.PC] Stat 04/14/21 08:18 CULTURE BLOOD [BC] Stat 04/14/21 08:22 CULTURE BLOOD [BC] Stat
[2021-04-14 07:29] LABS: ANION GAP 15.6 mmol/L (5-15); CHLORIDE,CL 98 mmol/L (98-107); SODIUM,NA 134 mmol/L (136-145)
[2021-04-14] MEDS ORDERED: Sodium Chloride 0.9% 1,000 ML IV SCH (08:00)
[2021-04-14 08:47] LABS: CORONAVIRUS COVID-19 NAA NEGATIVE (NEGATIVE); RESPIRATORY SYNCYTIAL VIR NAA NEGATIVE (NEGATIVE)
[2021-04-14] MEDS ORDERED: Acetaminophen 325 MG Tab PO ONE (08:53)
--- NOTE | 2021-04-14 08:54 | CR ---
[id number] RAD/RAD Chest PA or AP 1V EXAM: RAD Chest PA or AP 1V INDICATION: SEIZURE,HIGH WHITE BLOOD COUNT. COMPARISON: None. DISCUSSION/IMPRESSION: Catheter tubing projects over the right hemithorax and base of the neck. Correlate for shunt. Cardiomediastinal silhouette is normal in size and contour. Low lung volumes result in bibasilar vascular crowding/atelectasis. Nonmass-like and geographic appearing hyperdensity projects over the left hilar region. Etiology is nonspecific. Within limitation of portable technique, no obvious pneumonia or fluid retention. If there is continued clinical suspicion of pneumonia, noncontrast CT is recommended. Kirk Mclain MD 04/14/21 0853 Thank you for allowing us to participate in the care of your patient.
--- NOTE | 2021-04-14 08:55 | CR ---
[id number] RAD/RAD Abdomen Flat Plate 1V EXAM: RAD Abdomen Flat Plate 1V INDICATION: HIGH WHITE BLOOD COUNT,HX CONSTIPATION. COMPARISON: CT from January 2021. Discussion/Impression: Gaseous distention throughout the colon and numerous up to small bowel. However, bowel gas pattern is unobstructed in appearance. Overall stool volume is mild to moderate. Shunt catheter tubing projects over the abdomen. Kirk Mclain MD 04/14/21 0854 Thank you for allowing us to participate in the care of your patient.
[2021-04-14] MEDS ORDERED: Ondansetron 4 MG/2 ML SDV IV PRN (10:18)
[2021-04-14] MEDS ORDERED: Ondansetron 4 MG Tab.DIS PO PRN (10:18)
--- NOTE | 2021-04-14 10:28 | PCM.HP.2 ---
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 He presented to the emergency room early this morning after having a 3 to 4-minute seizure. Upon arriving to the ER he was noted to be alert but mildly postictal. Vital signs were relatively stable other than a mild fever (101) and oxygen saturation in the low 90s. Laboratory evaluation was notable for white cell count of 18.9 with a neutrophil predominance. Sodium slightly low at 134. Anion gap was 15.6. Alkaline phosphatase 123. Viral swabs were negative. Urinalysis was normal. Chest x-ray with questionable left lower lobe infiltrate but imaging was not the best. He is joined by his staff this morning who note that he has continued to work on his bowel regiment. They have noted that he has been more distended over the last 2 days. Did have 4 cups of emesis yesterday there is also another half a cup reported this morning during his seizure episode. Otherwise has been acting his normal self since returning home from spending part of the holiday weekend with his family. - Related Data Allergies/Adverse Reactions: Allergies Allergy/AdvReac Type Severity Reaction Status Date / Time cefaclor [Cefaclor] Allergy Cannot Verified 04/14/21 08:18 Remember Home Medications: Home Meds LORazepam [Ativan] 0.5 mg PO ASDIRECTED PRN 09/20/13 [History] Amoxicillin 2,000 mg PO ASDIRECTED 02/01/21 [History] Calcium Carbonate [Tums] 1,000 mg PO DAILY 02/01/21 [History] Clindamycin Phosphate 1 applic TOP DAILY 02/01/21 [History] Multivit-Minerals/Folic Acid [One-A-Day Vitacraves Gummie] 400 mcg PO DAILY 02/01/21 [History] Non-Formulary Medication [NF Drug] 1 cap PO BID 02/01/21 [History] Non-Formulary Medication [NF Drug] 10 ml PO DAILY 02/01/21 [History] Sertraline [Zoloft] 25 mg PO DAILY 02/01/21 [History] lamoTRIgine 300 mg PO BID 02/01/21 [History] levETIRAcetam [Keppra] 1,500 mg PO BID 02/01/21 [History] polyethylene glycoL 3350 [MiraLAX] 17 gm PO BID 04/14/21 [History] Past Medical History HEENT History: Reports: Other (See Below) (legally blind) Neurological History: Reports: Cerebral Palsy, Seizure Social & Family History - Family History Family Medical History: Unobtainable - Tobacco Use Tobacco Use Status *Q: Never Tobacco User - Caffeine Use Caffeine Use: Reports: None - Recreational Drug Use Recreational Drug Use: No H&P Review of Systems - Review of Systems: Review Of Systems: Unable To Obtain (patient has intellectual disability, unable to provide) Reason Not Obtained: patient has intellectual disability, unable to provide Exam - Exam Exam: See Below - Vital Signs Vital Signs: Last Vital Signs Temp 101.7 F H 04/14/21 09:28 Pulse 75 04/14/21 09:52 Resp 18 04/14/21 09:52 BP 116/71 04/14/21 09:52 Pulse Ox 92 L 04/14/21 09:52 Weight: 200 lb - Exam Quality Assessment: Supplemental Oxygen (1L per NC) General: Alert, Cooperative HEENT: Conjunctiva Clear, Mucosa Moist & [place], Posterior Pharynx Clear, Other (healing lesion to the roof of the mouth (burn?), about 3mm wide) Neck: Supple, Trachea Midline Lungs: Normal Respiratory Effort, Rales (faint, LLL) Cardiovascular: Regular Rate, Regular Rhythm GI/Abdominal Exam: Normal Bowel Sounds, Soft, Distended (Male) Exam: Normal Inspection, Circumcised Extremities: Non-Tender, No Pedal Edema Skin: Warm, Dry Neuro Extensive - Mental Status: Alert, Other (patient tired compared to baseline, will answer provider when asked questions "yes" and point to areas of pain (Lab draw site)) Psychiatric: Alert, Normal Mood - Patient Data Lab Results Last 24 hrs: Laboratory Results - last 24 hr 04/14/21 04/14/21 04/14/21 Range/Units 07:02 07:02 07:02 WBC 18.9 H (4.0-10.0) x10^3/uL RBC 5.40 (4.5-6.0) x10^6/uL Hgb 16.8 (14.0-18.0) g/dL Hct 46.3 (40.0-52.0) % MCV 85.7 (78.0-93.0) fL MCH 31.1 (26.0-32.0) pg MCHC 36.3 H (32.0-36.0) g/dL RDW Coeff of Emilia 12.4 (10.0-15.0) % Plt Count 278 (130-400) x10^3/uL Immature Gran % (Auto) 0.20 (0.00-0.43) % Neut % (Auto) 84.0 H (50.0-80.0) % Lymph % (Auto) 7.5 L (25.0-50.0) % Lake % (Auto) 8.0 (2.0-11.0) % Eos % (Auto) 0.1 (0.0-4.0) % Baso % (Auto) 0.2 (0.2-1.2) % Neut # (Auto) 15.9 H (1.8-7.7) x10^3/uL Lymph # (Auto) 1.4 (1.0-4.8) x10^3/uL [place] # (Auto) 1.5 H (0.0-0.8) x10^3/uL Eos # (Auto) 0.0 (0.0-0.5) x10^3/uL Baso # (Auto) 0.0 (0.0-0.2) x10^3/uL Immature Gran # (Auto) 0.04 (0.00-0.07) x10^3/uL Sodium 134 L (136-145) mmol/L Potassium 3.6 (3.5-5.1) mmol/L Chloride 98 (98-107) mmol/L Carbon Dioxide 24 (21-32) mmol/L Anion Gap 15.6 H (5-15) mmol/L BUN 12 (7-18) mg/dL Creatinine 0.8 (0.70-1.30) mg/dL Est Cr Clr Drug Dosing TNP Estimated GFR (MDRD) > 60 Glucose 103 H (70-99) mg/dL Lactic Acid 1.2 (0.4-2.0) mmol/L Calcium 9.6 (8.5-10.1) mg/dL Corrected Calcium 9.6 (8.5-10.1) mg/dL Total Bilirubin 0.5 (0.2-1.0) mg/dL AST 16 (15-37) U/L ALT 35 (16-63) U/L Alkaline Phosphatase 123 H (46-116) U/L Total Protein 7.7 (6.4-8.2) g/dL Albumin 4.0 (3.4-5.0) g/dL Globulin 3.7 Albumin/Globulin Ratio 1.08 Urine Color (YELLOW) Urine Appearance (CLEAR) Urine pH (5.0-8.0) Ur Specific [place] Urine Protein (NEGATIVE) mg/dL Urine Glucose (UA) (NEGATIVE) mg/dL Urine Ketones (NEGATIVE) mg/dL Urine Occult Blood (NEGATIVE) Urine Nitrite (NEGATIVE) Urine Bilirubin (NEGATIVE) Urine Urobilinogen (0.2) EU/dL Ur Leukocyte Esterase (NEGATIVE) Urine RBC (NOT SEEN) /HPF Urine WBC (NOT SEEN) /HPF Ur Squamous Epith Cells (NOT SEEN) /HPF Amorphous Sediment Urine Bacteria (NOT SEEN) /HPF Urine Mucus (NOT SEEN) /LPF Influenza Type A RNA (NEGATIVE) RSV RNA (INAAT) (NEGATIVE) Influenza Type B RNA (NEGATIVE) SARS-CoV-2 RNA (JOSÉ MIGUEL) (NEGATIVE) 04/14/21 04/14/21 Range/Units 08:00 08:40 WBC (4.0-10.0) x10^3/uL RBC (4.5-6.0) x10^6/uL Hgb (14.0-18.0) g/dL Hct (40.0-52.0) % MCV (78.0-93.0) fL MCH (26.0-32.0) pg MCHC (32.0-36.0) g/dL RDW Coeff of Emilia (10.0-15.0) % Plt Count (130-400) x10^3/uL Immature Gran % (Auto) (0.00-0.43) % Neut % (Auto) (50.0-80.0) % Lymph % (Auto) (25.0-50.0) % [place] % (Auto) (2.0-11.0) % Eos % (Auto) (0.0-4.0) % Baso % (Auto) (0.2-1.2) % Neut # (Auto) (1.8-7.7) x10^3/uL Lymph # (Auto) (1.0-4.8) x10^3/uL [place] # (Auto) (0.0-0.8) x10^3/uL Eos # (Auto) (0.0-0.5) x10^3/uL Baso # (Auto) (0.0-0.2) x10^3/uL Immature Gran # (Auto) (0.00-0.07) x10^3/uL Sodium (136-145) mmol/L Potassium (3.5-5.1) mmol/L Chloride (98-107) mmol/L Carbon Dioxide (21-32) mmol/L Anion Gap (5-15) mmol/L BUN (7-18) mg/dL Creatinine (0.70-1.30) mg/dL Est Cr Clr Drug Dosing Estimated GFR (MDRD) Glucose (70-99) mg/dL Lactic Acid (0.4-2.0) mmol/L Calcium (8.5-10.1) mg/dL Corrected Calcium (8.5-10.1) mg/dL Total Bilirubin (0.2-1.0) mg/dL AST (15-37) U/L ALT (16-63) U/L Alkaline Phosphatase (46-116) U/L Total Protein (6.4-8.2) g/dL Albumin (3.4-5.0) g/dL Globulin Albumin/Globulin Ratio Urine Color Yellow (YELLOW) Urine Appearance Slightly cloudy H (CLEAR) Urine pH 7.0 (5.0-8.0) Ur Specific [place] 1.025 Urine Protein 30 H (NEGATIVE) mg/dL Urine Glucose (UA) Negative (NEGATIVE) mg/dL Urine Ketones Trace H (NEGATIVE) mg/dL Urine Occult Blood Negative (NEGATIVE) Urine Nitrite Negative (NEGATIVE) Urine Bilirubin Negative (NEGATIVE) Urine Urobilinogen 0.2 (0.2) EU/dL Ur Leukocyte Esterase Negative (NEGATIVE) Urine RBC 0-5 (NOT SEEN) /HPF Urine WBC 0-5 (NOT SEEN) /HPF Ur Squamous Epith Cells Rare (NOT SEEN) /HPF Amorphous Sediment Moderate Urine Bacteria Occasional H (NOT SEEN) /HPF Urine Mucus Few H (NOT SEEN) /LPF Influenza Type A RNA Negative (NEGATIVE) RSV RNA (INAAT) Negative (NEGATIVE) Influenza Type B RNA Negative (NEGATIVE) SARS-CoV-2 RNA (JOSÉ MIGUEL) Negative (NEGATIVE) Result Diagrams: 04/14/21 07:02 04/14/21 07:02 Sepsis Event Note - Evaluation Sepsis Screening Result: No Definite Risk - Focused Exam Vital Signs: Vital Signs Temp Temp Temp Pulse Resp BP BP 04/14/21 09:52 75 18 116/71 04/14/21 09:28 101.7 F H 04/14/21 09:00 103 H 18 115/75 04/14/21 08:58 101.4 F H 04/14/21 07:45 101.4 F H 73 18 138/76 04/14/21 07:00 81 16 120/52 L 04/14/21 05:30 98.2 F 108 H 16 112/55 L Pulse Ox Pulse Ox 04/14/21 09:52 92 L 04/14/21 09:28 04/14/21 09:00 93 L 04/14/21 08:58 04/14/21 07:45 93 L 04/14/21 07:00 97 04/14/21 05:30 90 L 89 L - Problem List (1) Aspiration pneumonia SNOMED Code(s): 687945323 ICD Code: J69.0 - PNEUMONITIS DUE TO INHALATION OF FOOD AND VOMIT Status: Acute Current Visit: Yes (2) Constipation - functional SNOMED Code(s): 506444205 ICD Code: K59.09 - OTHER CONSTIPATION Status: Acute Current Visit: Yes Problem Details: Has had multiple bowel movements over the course of the day. Will send back to the [facility] and advised high fiber and increased oral fluids. (3) Fever SNOMED Code(s): 370480972 ICD Code: R50.9 - FEVER, UNSPECIFIED Status: Acute Current Visit: Yes (4) Seizure disorder SNOMED Code(s): 545851876 ICD Code: G40.909 - EPILEPSY, UNSP, NOT INTRACTABLE, WITHOUT STATUS EPILEPTICUS Status: Acute Current Visit: No Problem List Initiated/Reviewed/Updated: Yes Orders Last 24hrs: Active Orders 24 hr Category Date Time Status Admission Status [Patient Status] [ADT] Routine ADT 04/14/21 08:23 Active Dietary Supplements [RC] BIDMEALS Care 04/14/21 10:21 Ordered Oxygen Therapy [RC] PRN Care 04/14/21 10:18 Ordered Pulse Oximetry [RC] PRN Care 04/14/21 10:18 Ordered Up With Assistance [RC] ASDIRECTED Care 04/14/21 10:18 Ordered VTE/DVT Education [RC] PER UNIT ROUTINE Care 04/14/21 10:18 Ordered Vital Signs [RC] Q4H Care 04/14/21 10:18 Ordered Regular Diet [DIET] Diet 04/14/21 Lunch Ordered Chest 1V Frontal [CR] AM Exams 04/15/21 05:11 Ordered BASIC METABOLIC PANEL,BMP [CHEM] AM Lab 04/15/21 05:11 Ordered CBC WITH AUTO DIFF [HEME] AM Lab 04/15/21 05:11 Ordered CULTURE BLOOD [BC] Stat Lab 04/14/21 08:18 Received CULTURE BLOOD [BC] Stat Lab 04/14/21 08:22 Received Enoxaparin [Lovenox] Med 04/15/21 08:00 Ordered 40 mg SUBCUT DAILY Ondansetron [Zofran ODT] Med 04/14/21 10:18 Ordered 4 mg PO Q4H PRN Ondansetron [Zofran] Med 04/14/21 10:18 Ordered 4 mg IV Q4H PRN Piperacillin/Tazobactam [Zosyn] 4.5 gm Med 04/14/21 10:30 Ordered Sodium Chloride 0.9% [Normal Saline AdvBag] 100 ml IV Q6H Sodium Chloride 0.9% [Normal Saline] 1,000 ml Med 04/14/21 08:00 Active IV ASDIRECTED Blood Culture x2 Reflex Set [OM.PC] Stat Oth 04/14/21 08:03 Ordered Resuscitation Status Routine Resus Stat 04/14/21 10:18 Ordered Medication Orders Enoxaparin Sodium (Enoxaparin 40 Mg/0.4 Ml Syringe) 40 mg SUBCUT DAILY ARABELLA Sodium Chloride (Normal Saline) 1,000 mls @ 999 mls/hr IV ASDIRECTED ARABELLA Last Admin: 04/14/21 07:55 Dose: 999 mls/hr Documented by: LAURA Piperacillin Sod/Tazobactam (Sod 4.5 gm/ Sodium Chloride) 100 mls @ 200 mls/hr IV Q6H ARABELLA Ondansetron HCl (Ondansetron 4 Mg Tab.Dis) 4 mg PO Q4H PRN PRN Reason: nausea, able to take PO Ondansetron HCl (Ondansetron 4 Mg/2 Ml Sdv) 4 mg IV Q4H PRN PRN Reason: Nausea/Vomiting Assessment/Plan Comment:: Aspiration Pneumonia - Discussed with family/caretakers that fever could be due to aspiration pneumonia given associated leukocytosis and mild abnormal lung sounds and episodes of emesis yesterday/today Plan: - Will plan to treat with Pip-Tazo - Repeat labs in the am - O2 as needed - Blood cultures pending Seizure - History of seizure disorder, typical exacerbation when sick/constipated Plan: - Continue home Keppra/lamictal - Trough to be drawn Chronic constipation -Patient has been battling with constipation issues chronically -Concerned that there may be increased constipation after the holiday weekend -Abdominal x-ray with moderate amount of stool burden with push into the chest cavity Plan: -We will continue the home MiraLAX regiment, encourage oral intake of fluids -Fleets enema ordered Diet: Regular as tolerated DVT: Lovenox SQ Code: Full Disposition: Admitting inpatient for IV antibiotics and close monitoring. We will plan to repeat labs as well as x-ray in the morning. Awaiting blood cultures.
[2021-04-14] MEDS ORDERED: LORazepam 0.5 MG Tab PO PRN (10:54)
[2021-04-14] MEDS ORDERED: Sodium Phosphate,Monobasic/Sodium Phosphate,Dibasic Enema 133 ML Bottle RECTAL ONE (11:00)
[2021-04-14] MEDS: Polyethylene Glycol 3350 Powder 17 GM Packet PO SCH ×2 (12:00→20:14)
[2021-04-14] MEDS: Piperacillin/Tazobactam 4.5 GM in Sodium Chloride 0.9% 100 ML IV SCH ×3 (12:42→22:31)
[2021-04-14] MEDS: Acetaminophen 325 MG Tab PO PRN (17:39)
[2021-04-14] MEDS: lamoTRIgine 100 MG Tab PO SCH (20:14)
[2021-04-14] MEDS: levETIRAcetam 500 MG Tab PO SCH (20:14)
[2021-04-15] MEDS: Piperacillin/Tazobactam 4.5 GM in Sodium Chloride 0.9% 100 ML IV SCH ×4 (05:45→23:11)
[2021-04-15 07:02] LABS: ANION GAP 14.6 mmol/L (5-15); CHLORIDE,CL 109 mmol/L (98-107); SODIUM,NA 144 mmol/L (136-145)
--- NOTE | 2021-04-15 08:49 | CR ---
[id number] RAD/RAD Chest PA or AP 1V EXAM: RAD Chest PA or AP 1V INDICATION: MONITORING, ASPIRATION PNEUMONIA SUSPECTED. COMPARISON: April 14, 2021. DISCUSSION/IMPRESSION: Cardiomediastinal silhouette is stable in size and contour. Low lung volumes associated vascular crowding. Left basilar infiltrate has increased. No pneumothorax or pleural effusion. Anand Medina DO 04/15/21 0848 Thank you for allowing us to participate in the care of your patient.
[2021-04-15] MEDS: Sertraline 25 MG Tab PO SCH (08:54)
[2021-04-15] MEDS: lamoTRIgine 100 MG Tab PO SCH ×2 (08:54→20:23)
[2021-04-15] MEDS: Enoxaparin 40 MG/0.4 ML Syringe SUBCUT SCH (08:55)
[2021-04-15] MEDS: levETIRAcetam 500 MG Tab PO SCH ×2 (08:55→20:23)
[2021-04-15] MEDS: Polyethylene Glycol 3350 Powder 17 GM Packet PO SCH ×2 (08:55→20:30)
[2021-04-15] MEDS: CLINDAMYCIN PHOSPHATE TOP SCH (08:57)
--- NOTE | 2021-04-15 09:28 | PCM.PN ---
- General Info Date of Service: 04/15/21 Subjective Update: 30 yo male hospital day #2 admitted with aspiration pneumonia and constipation after presenting to the ER for evaluation of a seizure. Mom is present at bedside this am and gives the history as the patient is non- verbal. She states he is back to himself this morning. He has been more interactive and smiling. He has not had any fevers since admission. Mom does note that he is coughing more this morning. Sounds like he needs to cough stuff up but has not been able to do so. Ate breakfast well. Had 2 large BM's overnight. - Review of Systems Systems Review Comment:: unable to obtain - patient is non-verbal - Patient Data Vitals - Most Recent: Last Vital Signs Temp 37.1 C 04/15/21 05:50 Pulse 87 04/15/21 05:50 Resp 16 04/15/21 05:50 BP 116/59 L 04/15/21 05:50 Pulse Ox 93 L 04/15/21 05:52 Weight - Most Recent: 71.2 kg I&O - Last 24 Hours: Intake & Output 04/14/21 04/15/21 04/15/21 22:59 06:59 14:59 Intake Total 641 300 420 Output Total 100 Balance 541 300 420 Lab Results Last 24 Hours: Laboratory Results - last 24 hr 04/15/21 04/15/21 Range/Units 06:38 06:38 WBC 11.2 H (4.0-10.0) x10^3/uL RBC 5.11 (4.5-6.0) x10^6/uL Hgb 16.1 (14.0-18.0) g/dL Hct 44.2 (40.0-52.0) % MCV 86.5 (78.0-93.0) fL MCH 31.5 (26.0-32.0) pg MCHC 36.4 H (32.0-36.0) g/dL RDW Coeff of Emilia 12.8 (10.0-15.0) % Plt Count 240 (130-400) x10^3/uL Immature Gran % (Auto) 0.20 (0.00-0.43) % Neut % (Auto) 68.9 (50.0-80.0) % Lymph % (Auto) 18.9 L (25.0-50.0) % [place] % (Auto) 10.8 (2.0-11.0) % Eos % (Auto) 0.6 (0.0-4.0) % Baso % (Auto) 0.6 (0.2-1.2) % Neut # (Auto) 7.7 (1.8-7.7) x10^3/uL Lymph # (Auto) 2.1 (1.0-4.8) x10^3/uL [place] # (Auto) 1.2 H (0.0-0.8) x10^3/uL Eos # (Auto) 0.1 (0.0-0.5) x10^3/uL Baso # (Auto) 0.1 (0.0-0.2) x10^3/uL Immature Gran # (Auto) 0.02 (0.00-0.07) x10^3/uL Sodium 144 D (136-145) mmol/L Potassium 3.6 (3.5-5.1) mmol/L Chloride 109 H (98-107) mmol/L Carbon Dioxide 24 (21-32) mmol/L Anion Gap 14.6 (5-15) mmol/L BUN 12 (7-18) mg/dL Creatinine 0.8 (0.70-1.30) mg/dL Est Cr Clr Drug Dosing 117.45 mL/min Estimated GFR (MDRD) > 60 Glucose 89 (70-99) mg/dL Calcium 8.6 (8.5-10.1) mg/dL Bradford Results Last 24 Hours: Microbiology 04/14/21 08:22 Aerobic Blood Culture - Preliminary Blood - Venous - Lab Draw NO GROWTH AFTER 1 DAY Anaerobic Blood Culture - Preliminary NO GROWTH AFTER 1 DAY 04/14/21 08:18 Aerobic Blood Culture - Preliminary Blood - Venous NO GROWTH AFTER 1 DAY Anaerobic Blood Culture - Preliminary NO GROWTH AFTER 1 DAY Med Orders - Current: Current Medications Acetaminophen (Acetaminophen 325 Mg Tab) 650 mg PO Q6H PRN PRN Reason: Pain Last Admin: 04/14/21 17:39 Dose: 650 mg Documented by: Enoxaparin Sodium (Enoxaparin 40 Mg/0.4 Ml Syringe) 40 mg SUBCUT DAILY ARABELLA Last Admin: 04/15/21 08:55 Dose: 40 mg Documented by: Sodium Chloride (Normal Saline) 1,000 mls @ 999 mls/hr IV ASDIRECTED [facility] Last Admin: 04/14/21 07:55 Dose: 999 mls/hr Documented by: Piperacillin Sod/Tazobactam (Sod 4.5 gm/ Sodium Chloride) 100 mls @ 200 mls/hr IV Q6H [facility] Last Admin: 04/15/21 05:45 Dose: 200 mls/hr Documented by: Lamotrigine (Lamotrigine 100 Mg Tab) 300 mg PO BID [facility] Last Admin: 04/15/21 08:54 Dose: 300 mg Documented by: Levetiracetam (Levetiracetam 500 Mg Tab) 1,500 mg PO BID [facility] Last Admin: 04/15/21 08:55 Dose: 1,500 mg Documented by: Lorazepam (Lorazepam 0.5 Mg Tab) 0.5 mg PO ASDIRECTED PRN PRN Reason: Agitation Clindamycin Phosphate Gel (Own Supply) 1 applic TOP DAILY [facility] Last Admin: 04/15/21 08:57 Dose: Not Given Documented by: Ondansetron HCl (Ondansetron 4 Mg Tab.Dis) 4 mg PO Q4H PRN PRN Reason: nausea, able to take PO Ondansetron HCl (Ondansetron 4 Mg/2 Ml Sdv) 4 mg IV Q4H PRN PRN Reason: Nausea/Vomiting Polyethylene Glycol (Polyethylene Glycol 3350 Powder 17 Gm Packet) 17 gm PO BID [facility] Last Admin: 04/15/21 08:55 Dose: 17 gm Documented by: Sertraline HCl (Sertraline 25 Mg Tab) 25 mg PO DAILY [facility] Last Admin: 04/15/21 08:54 Dose: 25 mg Documented by: Discontinued Medications Acetaminophen (Acetaminophen 325 Mg Tab) 650 mg PO NOW ONE Stop: 04/14/21 08:54 Last Admin: 04/14/21 08:58 Dose: 650 mg Documented by: Sodium Biphosphate/Sodium Phosphate (Sodium Phosphate,Monobasic/Sodium Phosphate,Dibasic Enema 133 Ml Bottle) 133 ml RECTAL ONETIME ONE Stop: 04/14/21 11:01 Last Admin: 04/14/21 12:41 Dose: 1 enema Documented by: - Exam General: Alert, Cooperative, No Acute Distress HEENT: Mucous Membr. Moist/[place] Neck: Supple, Trachea Midline, No Thyromegaly. No: Lymphadenopathy Lungs: Normal Respiratory Effort, Crackles (LLL) Cardiovascular: Regular Rate, Regular Rhythm, No Murmurs GI/Abdominal Exam: Normal Bowel Sounds, Soft, Non-Tender, No Organomegaly, No Distention, No Mass Extremities: Normal Inspection, Normal Range of Motion, Non-Tender, No Pedal Edema, Normal Capillary Refill Peripheral Pulses: 2+: Radial (L), Radial (R) Skin: Warm, Dry, Intact Neurological: No New Focal Deficit - Patient Data Lab Results Last 24 hrs: Laboratory Results - last 24 hr 04/15/21 04/15/21 Range/Units 06:38 06:38 WBC 11.2 H (4.0-10.0) x10^3/uL RBC 5.11 (4.5-6.0) x10^6/uL Hgb 16.1 (14.0-18.0) g/dL Hct 44.2 (40.0-52.0) % MCV 86.5 (78.0-93.0) fL MCH 31.5 (26.0-32.0) pg MCHC 36.4 H (32.0-36.0) g/dL RDW Coeff of Emilia 12.8 (10.0-15.0) % Plt Count 240 (130-400) x10^3/uL Immature Gran % (Auto) 0.20 (0.00-0.43) % Neut % (Auto) 68.9 (50.0-80.0) % Lymph % (Auto) 18.9 L (25.0-50.0) % [place] % (Auto) 10.8 (2.0-11.0) % Eos % (Auto) 0.6 (0.0-4.0) % Baso % (Auto) 0.6 (0.2-1.2) % Neut # (Auto) 7.7 (1.8-7.7) x10^3/uL Lymph # (Auto) 2.1 (1.0-4.8) x10^3/uL [place] # (Auto) 1.2 H (0.0-0.8) x10^3/uL Eos # (Auto) 0.1 (0.0-0.5) x10^3/uL Baso # (Auto) 0.1 (0.0-0.2) x10^3/uL Immature Gran # (Auto) 0.02 (0.00-0.07) x10^3/uL Sodium 144 D (136-145) mmol/L Potassium 3.6 (3.5-5.1) mmol/L Chloride 109 H (98-107) mmol/L Carbon Dioxide 24 (21-32) mmol/L Anion Gap 14.6 (5-15) mmol/L BUN 12 (7-18) mg/dL Creatinine 0.8 (0.70-1.30) mg/dL Est Cr Clr Drug Dosing 117.45 mL/min Estimated GFR (MDRD) > 60 Glucose 89 (70-99) mg/dL Calcium 8.6 (8.5-10.1) mg/dL Result Diagrams: 04/15/21 06:38 04/15/21 06:38 Bradford Results Last 24 hrs: Microbiology 04/14/21 08:22 Aerobic Blood Culture - Preliminary Blood - Venous - Lab Draw NO GROWTH AFTER 1 DAY Anaerobic Blood Culture - Preliminary NO GROWTH AFTER 1 DAY 04/14/21 08:18 Aerobic Blood Culture - Preliminary Blood - Venous NO GROWTH AFTER 1 DAY Anaerobic Blood Culture - Preliminary NO GROWTH AFTER 1 DAY Sepsis Event Note - Evaluation Sepsis Screening Result: No Definite Risk - Focused Exam Vital Signs: Vital Signs Temp Temp Pulse Resp BP Pulse Ox 04/15/21 05:52 93 L 04/15/21 05:50 37.1 C 87 16 116/59 L 93 L 04/15/21 02:20 36.8 C 80 14 123/74 93 L 04/15/21 02:00 92 L 04/14/21 21:34 90 L 04/14/21 21:32 37.1 C 98 18 110/66 90 L - Problem List & Annotations (1) Aspiration pneumonia SNOMED Code(s): 862809794 Code(s): J69.0 - PNEUMONITIS DUE TO INHALATION OF FOOD AND VOMIT Status: Acute Current Visit: Yes Qualifiers: Aspiration pneumonia type: unspecified Laterality: left Lung location: lower lobe of lung Qualified Code(s): J69.0 - Pneumonitis due to inhalation of food and vomit (2) Seizure disorder SNOMED Code(s): 366502450 Code(s): G40.909 - EPILEPSY, UNSP, NOT INTRACTABLE, WITHOUT STATUS EPILEPTICUS Status: Chronic Current Visit: No (3) 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 SNOMED Code(s): 461887906 Code(s): Z98.2 - PRESENCE OF CEREBROSPINAL FLUID DRAINAGE DEVICE Status: Chronic Current Visit: No (4) Cerebral palsy SNOMED Code(s): 330670486 Code(s): G80.9 - CEREBRAL PALSY, UNSPECIFIED Status: Chronic Current Visit: Yes Qualifiers: Cerebral palsy type: unspecified type Qualified Code(s): G80.9 - Cerebral palsy, unspecified (5) Constipation SNOMED Code(s): 10003248 Code(s): K59.00 - CONSTIPATION, UNSPECIFIED Status: Chronic Current Visit: Yes Qualifiers: Constipation type: unspecified constipation type Qualified Code(s): K59.00 - Constipation, unspecified - Problem List Review Problem List Initiated/Reviewed/Updated: Yes - My Orders Last 24 Hours: My Active Orders 04/14/21 15:56 Communication Order [RC] 04/14/21 17:07 Acetaminophen [TylenoL] 650 mg PO Q6H PRN 04/16/21 05:11 BASIC METABOLIC PANEL,BMP [CHEM] Routine CBC WITH AUTO DIFF [HEME] Routine - Assessment Assessment:: 30 yo male hospital day #2 admitted with aspiration pneumonia and constipation a fter presenting to the ER with a seizure. Doing much better today. Labs also improved. Suspicion is that he developed significant constipation which led to emesis with subsequent aspiration pneumonitis that contributed to the seizure. - Plan Plan:: #1 Aspiration Pneumonia - CXR actually worse today, which is not surprising as the severe constipation contributed to some atelectasis. - Continue zosyn. - Repeat labs in the am. - Not requiring oxygen. Will add PRN. - Blood cultures pending. - Never met sepsis criteria. #2 Seizure #3 [employer]PER[employer] shunt in place #4 Cerebral palsy - Secondary to above illness. - No evidence for shunt malfunction at this time. - Continue home Keppra/lamictal - Trough pending. #5 Chronic constipation - Good results from enema. - Continue miralax. - Will add fiber supplement and ensure adequate water intake upon d/c. Diet: Regular as tolerated DVT: Lovenox SQ Code: Full Disposition: He will remain inpatient today to complete 48 hours of IV antibiotics. Anticipate d/c back to retirement tomorrow.
[2021-04-15] MEDS: Acetaminophen 325 MG Tab PO PRN (20:27)
[2021-04-16] MEDS: Piperacillin/Tazobactam 4.5 GM in Sodium Chloride 0.9% 100 ML IV SCH ×2 (05:11→10:51)
[2021-04-16 07:24] LABS: ANION GAP 13.8 mmol/L (5-15); CHLORIDE,CL 111 mmol/L (98-107); SODIUM,NA 145 mmol/L (136-145)
--- NOTE | 2021-04-16 08:27 | PCM.DCSUM1 ---
Discharge Summary - Hospital Course Brief History: Mr. Mayer is a 30 yo male who was admitted with pneumonia and constipation after presenting to the ER with a seizure. - Discharge Data Discharge Date: 04/16/21 Discharge Disposition: Home, Self-Care 01 Condition: Good - Referral to Home Health Primary Care Physician: Linh Cotter MD - Discharge Diagnosis/Problem(s) (1) Aspiration pneumonia SNOMED Code(s): 000334725 ICD Code: J69.0 - PNEUMONITIS DUE TO INHALATION OF FOOD AND VOMIT Status: Acute Current Visit: Yes Qualifiers: Aspiration pneumonia type: unspecified Laterality: left Lung location: lower lobe of lung Qualified Code(s): J69.0 - Pneumonitis due to inhalation of food and vomit (2) Seizure disorder SNOMED Code(s): 661264569 ICD Code: G40.909 - EPILEPSY, UNSP, NOT INTRACTABLE, WITHOUT STATUS EPILEPTICUS Status: Chronic Current Visit: No (3) 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 SNOMED Code(s): 877530092 ICD Code: Z98.2 - PRESENCE OF CEREBROSPINAL FLUID DRAINAGE DEVICE Status: Chronic Current Visit: No (4) Cerebral palsy SNOMED Code(s): 798556828 ICD Code: G80.9 - CEREBRAL PALSY, UNSPECIFIED Status: Chronic Current Visit: Yes Qualifiers: Cerebral palsy type: unspecified type Qualified Code(s): G80.9 - Cerebral palsy, unspecified (5) Constipation SNOMED Code(s): 06040663 ICD Code: K59.00 - CONSTIPATION, UNSPECIFIED Status: Chronic Current Visit: Yes Qualifiers: Constipation type: unspecified constipation type Qualified Code(s): K59.00 - Constipation, unspecified - Patient Summary/Data Operative Procedure(s) Performed: none Complications: none Consults: none Labs Pending at D/C: none Recommended Follow-up Testing/Procedures: none Planned Operative Procedure(s) after DC: none Hospital Course: He was admitted and started on IV antibiotics. He was also given an enema and continued on his home bowel regimen. This worked very well for his bowel movements. In fact, he even had some looser bowel movements yesterday. He is still coughing but that has not been getting any worse. No fever overnight. He has never required oxygen or met sepsis criteria. No seizures since admit. He will be discharged home on oral antibiotics to complete a 7 day course. No changes were made to his seizure medications as the seizure is felt to be provoked. - Patient Instructions Diet: Usual Diet as Tolerated, Drink 8-10+ Glasses/Day Activity: As Tolerated Showering/Bathing: May Shower Notify Provider of: Fever, Increased Pain, Nausea and/or Vomiting Other/Special Instructions: Needs to drink 64 oz of liquids (mostly water) daily. Increase miralax to 1.5 caps BID. Add fiber supplement once/day. Administer 30 mL of milk of magnesia if he goes 1 day without a bowel movement - Discharge Plan *PRESCRIPTION DRUG MONITORING PROGRAM REVIEWED*: No *COPY OF PRESCRIPTION DRUG MONITORING REPORT IN PATIENT JANE: No Prescriptions/Med Rec: Amoxicillin/Potassium Clav [Augmentin 875-125 Tablet] 1 tab PO BID #10 tablet calcium polycarbophiL [Fiber Tabs] 625 mg PO DAILY #90 tablet Home Medications: Home Meds LORazepam [Ativan] 0.5 mg PO ASDIRECTED PRN 09/20/13 [History] Amoxicillin 2,000 mg PO ASDIRECTED PRN 02/01/21 [History] Calcium Carbonate [Tums] 1,000 mg PO DAILY 02/01/21 [History] Clindamycin Phosphate 1 applic TOP DAILY 02/01/21 [History] Multivit-Minerals/Folic Acid [One-A-Day Vitacraves Gummies] 400 mcg PO DAILY 02/01/21 [History] Non-Formulary Medication [NF Drug] 10 ml PO DAILY 02/01/21 [History] Sertraline [Zoloft] 25 mg PO DAILY 02/01/21 [History] lamoTRIgine 300 mg PO BID 02/01/21 [History] levETIRAcetam [Keppra] 1,500 mg PO BID 02/01/21 [History] Docusate Sodium 100 mg PO BID 04/14/21 [History] Ondansetron [Zofran ODT] 4 mg PO Q4H PRN 04/14/21 [History] Amoxicillin/Potassium Clav [Augmentin 875-125 Tablet] 1 tab PO BID #10 tablet 04/16/21 [Rx] calcium polycarbophiL [Fiber Tabs] 625 mg PO DAILY #90 tablet 04/16/21 [Rx] polyethylene glycoL 3350 [MiraLAX] 25.5 gm PO BID #0 04/16/21 [Rx] Forms: ED Department Discharge Referrals: Linh Cotter MD [Primary Care Provider] - - Discharge Summary/Plan Comment DC Time >30 min.: No Total # of Minutes for Discharge Time: 25 - General Info Date of Service: 04/16/21 Subjective Update: 30 yo male hospital day #3 admitted with pneumonia and constipation after presenting to the ER for evaluation of a seizure. Patient is non-verbal so history is obtained from mom and nursing. No overnight events. He is still coughing but this is about the same as yesterday. No fevers overnight. No seizures since admit. Is eating well and acting like himself. Has had multiple bowel movements since admit. - Review of Systems Systems Review Comment: unable to obtain - patient is nonverbal - Patient Data Vitals - Most Recent: Last Vital Signs Temp 36.7 C 04/16/21 05:18 Pulse 56 L 04/16/21 05:18 Resp 18 04/16/21 05:18 BP 99/57 L 04/16/21 05:18 Pulse Ox 95 04/16/21 05:19 Weight - Most Recent: 71.5 kg I&O - Last 24 hours: Intake & Output 04/15/21 04/16/21 04/16/21 22:59 06:59 14:59 Intake Total 544 400 Output Total 400 Balance 144 400 Lab Results - Last 24 hrs: Laboratory Results - last 24 hr 04/16/21 04/16/21 Range/Units 07:02 07:02 WBC 9.3 (4.0-10.0) x10^3/uL RBC 5.14 (4.5-6.0) x10^6/uL Hgb 15.8 (14.0-18.0) g/dL Hct 44.9 (40.0-52.0) % MCV 87.4 (78.0-93.0) fL MCH 30.7 (26.0-32.0) pg MCHC 35.2 (32.0-36.0) g/dL RDW Coeff of Emilia 13.1 (10.0-15.0) % Plt Count 238 (130-400) x10^3/uL Immature Gran % (Auto) 0.30 (0.00-0.43) % Neut % (Auto) 63.1 (50.0-80.0) % Lymph % (Auto) 22.2 L (25.0-50.0) % Cassia % (Auto) 10.9 (2.0-11.0) % Eos % (Auto) 2.7 (0.0-4.0) % Baso % (Auto) 0.8 (0.2-1.2) % Neut # (Auto) 5.9 (1.8-7.7) x10^3/uL Lymph # (Auto) 2.1 (1.0-4.8) x10^3/uL Cassia # (Auto) 1.0 H (0.0-0.8) x10^3/uL Eos # (Auto) 0.3 (0.0-0.5) x10^3/uL Baso # (Auto) 0.1 (0.0-0.2) x10^3/uL Immature Gran # (Auto) 0.03 (0.00-0.07) x10^3/uL Sodium 145 (136-145) mmol/L Potassium 3.8 (3.5-5.1) mmol/L Chloride 111 H (98-107) mmol/L Carbon Dioxide 24 (21-32) mmol/L Anion Gap 13.8 (5-15) mmol/L BUN 11 (7-18) mg/dL Creatinine 0.8 (0.70-1.30) mg/dL Est Cr Clr Drug Dosing 117.45 mL/min Estimated GFR (MDRD) > 60 Glucose 91 (70-99) mg/dL Calcium 8.5 (8.5-10.1) mg/dL BERNARD Results - Last 24 hrs: Microbiology 04/14/21 08:22 Aerobic Blood Culture - Preliminary Blood - Venous - Lab Draw NO GROWTH AFTER 1 DAY Anaerobic Blood Culture - Preliminary NO GROWTH AFTER 1 DAY 04/14/21 08:18 Aerobic Blood Culture - Preliminary Blood - Venous NO GROWTH AFTER 1 DAY Anaerobic Blood Culture - Preliminary NO GROWTH AFTER 1 DAY Med Orders - Current: Current Medications Acetaminophen (Acetaminophen 325 Mg Tab) 650 mg PO Q6H PRN PRN Reason: Pain Last Admin: 04/15/21 20:27 Dose: 650 mg Documented by: Enoxaparin Sodium (Enoxaparin 40 Mg/0.4 Ml Syringe) 40 mg SUBCUT DAILY [facility] Last Admin: 04/15/21 08:55 Dose: 40 mg Documented by: Sodium Chloride (Normal Saline) 1,000 mls @ 999 mls/hr IV ASDIRECTED [facility] Last Admin: 04/14/21 07:55 Dose: 999 mls/hr Documented by: Piperacillin Sod/Tazobactam (Sod 4.5 gm/ Sodium Chloride) 100 mls @ 200 mls/hr IV Q6H [facility] Last Admin: 04/16/21 05:11 Dose: 200 mls/hr Documented by: Lamotrigine (Lamotrigine 100 Mg Tab) 300 mg PO BID [facility] Last Admin: 04/15/21 20:23 Dose: 300 mg Documented by: Levetiracetam (Levetiracetam 500 Mg Tab) 1,500 mg PO BID [facility] Last Admin: 04/15/21 20:23 Dose: 1,500 mg Documented by: Lorazepam (Lorazepam 0.5 Mg Tab) 0.5 mg PO ASDIRECTED PRN PRN Reason: Agitation Clindamycin Phosphate Gel (Own Supply) 1 applic TOP DAILY [facility] Last Admin: 04/15/21 08:57 Dose: Not Given Documented by: Ondansetron HCl (Ondansetron 4 Mg Tab.Dis) 4 mg PO Q4H PRN PRN Reason: nausea, able to take PO Ondansetron HCl (Ondansetron 4 Mg/2 Ml Sdv) 4 mg IV Q4H PRN PRN Reason: Nausea/Vomiting Polyethylene Glycol (Polyethylene Glycol 3350 Powder 17 Gm Packet) 17 gm PO BID [facility] Last Admin: 04/15/21 20:30 Dose: 17 gm Documented by: Sertraline HCl (Sertraline 25 Mg Tab) 25 mg PO DAILY [facility] Last Admin: 04/15/21 08:54 Dose: 25 mg Documented by: Discontinued Medications Acetaminophen (Acetaminophen 325 Mg Tab) 650 mg PO NOW ONE Stop: 04/14/21 08:54 Last Admin: 04/14/21 08:58 Dose: 650 mg Documented by: Sodium Biphosphate/Sodium Phosphate (Sodium Phosphate,Monobasic/Sodium Phosphate,Dibasic Enema 133 Ml Bottle) 133 ml RECTAL ONETIME ONE Stop: 04/14/21 11:01 Last Admin: 04/14/21 12:41 Dose: 1 enema Documented by: - Exam General: Reports: Alert, Cooperative, No Acute Distress HEENT: Reports: Mucous Membr. Moist/[place] Neck: Reports: Supple, Trachea Midline, No Thyromegaly. Denies: Lymphadenopathy Lungs: Reports: Clear to Auscultation, Normal Respiratory Effort Cardiovascular: Reports: Regular Rate, Regular Rhythm, No Murmurs GI/Abdominal Exam: Normal Bowel Sounds, Soft, Non-Tender, No Organomegaly, No Distention, No Mass Extremities: Normal Inspection, Non-Tender, No Pedal Edema, Normal Capillary Refill Skin: Reports: Warm, Dry, Intact Neurological: Reports: No New Focal Deficit
[2021-04-16] MEDS: Sertraline 25 MG Tab PO SCH (08:39)
[2021-04-16] MEDS: levETIRAcetam 500 MG Tab PO SCH (08:39)
[2021-04-16] MEDS: lamoTRIgine 100 MG Tab PO SCH (08:39)
[2021-04-16] MEDS: Polyethylene Glycol 3350 Powder 17 GM Packet PO SCH (08:40)
[2021-04-16] MEDS: Enoxaparin 40 MG/0.4 ML Syringe SUBCUT SCH (08:40)
[2021-04-16] MEDS: CLINDAMYCIN PHOSPHATE TOP SCH (08:40)
== END 2021-04-16 12:00 | disposition home or self-care (01) | DRG 391 ==
LOC: VM.ED 05:30 → UNDOADMIN 08:23 → VM.MS 08:23
PROVIDERS: ADMIT Family Medicine; ATTEND Family Medicine
DX: R50.9 Fever, unspecified (principal); D72.829 Elevated white blood cell count, unspecified; K59.09 Other constipation; J69.0 Pneumonitis due to inhalation of food and vomit; F79 Unspecified intellectual disabilities; G40.909 Epilepsy, unspecified, not intractable, without status epilepticus; Z88.8 Allergy status to other drugs, medicaments and biological substances; G80.9 Cerebral palsy, unspecified; F32.A Depression, unspecified; Z79.899 Other long term (current) drug therapy; Z98.2 Presence of cerebrospinal fluid drainage device; Z20.822 Contact with and (suspected) exposure to COVID-19
CPT/HCPCS: 0241U; 36415; 71045; 74018; 80048; 80053; 80177; 81001; 83605; 85025; 87040; 94760; 99285-25; A9270-GY; J1650; J2543; J7030

== ENCOUNTER 2021-10-08 18:16 | Emergency (ER) | payer MEDICAID ==
[2021-10-08 19:16] LABS: CHLORIDE,CL 94 mmol/L (98-107); SODIUM,NA 133 mmol/L (136-145)
[2021-10-08 19:17] LABS: ANION GAP 15.1 mmol/L (5-15); ESTIMATED GFR 126 mL/min (>=60)
[2021-10-08] MEDS ORDERED: cefTRIAXone 1 GM, Lidocaine 1% 2.1 ML IM ONE ×2 (19:22)
== END 2021-10-08 19:46 | disposition home or self-care (01) ==
LOC: VM.ED 18:16
DX: J18.9 Pneumonia, unspecified organism (principal); Z88.1 Allergy status to other antibiotic agents; Z20.822 Contact with and (suspected) exposure to COVID-19
CPT/HCPCS: 36415; 71045; 80053; 85025; 87635; 96372; 99283; J0696; 99284; U0002

== ENCOUNTER 2021-11-18 17:21 | Emergency (ER) | payer MEDICAID ==
[2021-11-18 18:22] LABS: CHLORIDE,CL 97 mmol/L (98-107); SODIUM,NA 134 mmol/L (136-145)
[2021-11-18 18:25] LABS: ANION GAP 12.5 mmol/L (5-15); ESTIMATED GFR 126 mL/min (>=60)
[2021-11-18 18:31] LABS: STREP A BY PCR NOT DETECTED (NOT DETECT)
[2021-11-18 18:44] LABS: CORONAVIRUS COVID-19 NAA NEGATIVE (NEGATIVE); RESPIRATORY SYNCYTIAL VIR NAA NEGATIVE (NEGATIVE)
[2021-11-18] MEDS ORDERED: cefTRIAXone 1 GM, Lidocaine 1% 2.1 ML IM ONE ×2 (19:09)
== END 2021-11-18 19:40 | disposition home or self-care (01) ==
LOC: VM.ED 17:21
DX: J32.9 Chronic sinusitis, unspecified (principal); Z20.822 Contact with and (suspected) exposure to COVID-19; Z88.1 Allergy status to other antibiotic agents
CPT/HCPCS: 0241U; 36415; 71045; 80053; 85025; 86140; 87651-QW; 96372; 99283; 99284; J0696

== ENCOUNTER 2021-11-23 06:35 | Emergency (ER) | payer MEDICAID ==
[2021-11-23 07:52] LABS: ANION GAP 13.9 mmol/L (5-15)
[2021-11-23] MEDS ORDERED: Iopamidol 612 MG/ML 100 ML Bottle IVPUSH ONE (08:42)
== END 2021-11-23 10:45 | disposition home or self-care (01) ==
LOC: VM.ED 06:35
DX: K21.9 Gastro-esophageal reflux disease without esophagitis (principal); Z88.1 Allergy status to other antibiotic agents; Z79.899 Other long term (current) drug therapy
CPT/HCPCS: 36415; 74019; 74177; 80053; 81001; 85025; 99283; 99284; Q9967

== ENCOUNTER 2022-06-20 01:20 | Emergency (ER) | payer MEDICAID | END 2022-06-20 02:24 | disposition home or self-care (01) | LOC: VM.ED 01:20 | DX: R07.9 Chest pain, unspecified (principal); K21.9 Gastro-esophageal reflux disease without esophagitis; Z88.1 Allergy status to other antibiotic agents; Z79.899 Other long term (current) drug therapy; Z90.49 Acquired absence of other specified parts of digestive tract | CPT/HCPCS: 99284 ==

== ENCOUNTER 2022-09-21 19:31 | Emergency (ER) | payer MEDICAID ==
[2022-09-21 19:59] LABS: APPEARANCE,URINE CLEAR (CLEAR); BILIRUBIN,URINE NEGATIVE (NEGATIVE); COLOR,URINE YELLOW (YELLOW); GLUCOSE,URINE NEGATIVE (NEGATIVE); KETONES,URINE 40 mg/dL (NEGATIVE); LEUKOCYTE ESTERASE,URINE NEGATIVE (NEGATIVE); NITRITE,URINE NEGATIVE (NEGATIVE); OCCULT BLOOD,URINE NEGATIVE (NEGATIVE); PROTEIN,URINE NEGATIVE (NEGATIVE); UROBILINOGEN,URINE 0.2 EU/dL (0.2)
[2022-09-21] MEDS ORDERED: Acetaminophen 325 MG Tab PO ONE (20:13)
== END 2022-09-21 20:42 | disposition home or self-care (01) ==
LOC: VM.ED 19:31
DX: R11.10 Vomiting, unspecified (principal); K21.9 Gastro-esophageal reflux disease without esophagitis; Z79.899 Other long term (current) drug therapy; Z88.8 Allergy status to other drugs, medicaments and biological substances
CPT/HCPCS: 81003; 99284; A9270-GY

== ENCOUNTER 2022-10-21 18:27 | Emergency (ER) | payer MEDICAID ==
[2022-10-21 18:49] LABS: BASOPHILS ABSOLUTE AUTO 0.1 x10^3/uL (0.0-0.2); BASOPHILS PERCENT AUTO 0.8 % (0.2-1.2); EOSINOPHILS ABSOLUTE AUTO 0.2 x10^3/uL (0.0-0.5); EOSINOPHILS PERCENT AUTO 1.5 % (0.0-4.0); HEMATOCRIT 46.5 % (40.0-52.0); HEMOGLOBIN 16.4 g/dL (14.0-18.0); IMMATURE GRAN ABSOLUTE AUTO 0.02 x10^3/uL (0.00-0.07); LYMPHOCYTES ABSOLUTE AUTO 3.4 x10^3/uL (1.0-4.8); LYMPHOCYTES PERCENT AUTO 33.7 % (25.0-50.0); MEAN CORPUSCULAR HEMOGLOBIN 31.2 pg (26.0-32.0); MEAN CORPUSCULAR HGB CONC 35.3 g/dL (32.0-36.0); MEAN CORPUSCULAR VOLUME 88.6 fL (78.0-93.0); MONOCYTES PERCENT AUTO 9.6 % (2.0-11.0); NEUTROPHILS ABSOLUTE AUTO 5.5 x10^3/uL (1.8-7.7); NEUTROPHILS PERCENT AUTO 54.2 % (50.0-80.0); PLATELET COUNT,PLT 245 x10^3/uL (130-400); RED BLOOD CELL COUNT 5.25 x10^6/uL (4.5-6.0); WHITE BLOOD CELL COUNT,WBC 10.2 x10^3/uL (4.0-10.0)
[2022-10-21 19:04] LABS: A/G RATIO 1.29; ALANINE AMINOTRANSFERASE,ALT 39 U/L (16-63); ALBUMIN 4.5 g/dL (3.4-5.0); ALKALINE PHOSPHATASE 119 U/L (46-116); ANION GAP 16.6 mmol/L (5-15); ASPARTATE AMNIOTRANSFERASE,AST 16 U/L (15-37); BILIRUBIN TOTAL 0.3 mg/dL (0.2-1.0); BLOOD UREA NITROGEN,BUN 11 mg/dL (7-18); C-REACTIVE PROTEIN 0.12 mg/dL (<=0.30); CALCIUM 9.2 mg/dL (8.5-10.1); CARBON DIOXIDE,CO2 29 mmol/L (21-32); CHLORIDE,CL 104 mmol/L (98-107); CREATINE KINASE,CK 104 U/L (39-308); CREATININE 0.7 mg/dL (0.70-1.30); ESTIMATED GFR 126 mL/min (>=60); GLUCOSE RANDOM 94 mg/dL (70-99); POTASSIUM,K 4.6 mmol/L (3.5-5.1); SODIUM,NA 145 mmol/L (136-145)
== END 2022-10-21 19:55 | disposition home or self-care (01) ==
LOC: VM.ED 18:27
DX: R51.9 Headache, unspecified (principal); Z79.899 Other long term (current) drug therapy; Z88.1 Allergy status to other antibiotic agents
CPT/HCPCS: 36415; 70450; 80053; 82550; 85025; 86140; 99283; 99284